=== PATIENT | female | born 1945 | race Caucasian/White ===

== ENCOUNTER → 2017-11-22 | Outpatient (CLI) | payer MEDICARE, BC ==
[~2017-11-22] MED LIST: ACIDOPHILLUS PO; ACIDOPHILUS1 EAC1 PO; ACYC400 PO; ASPI325 PO; ATOR10 PO; CHLO4 PO; CLON.5 PO; CRANBERRY PO; Cranberry500 M1 PO; DEXA4 PO; FURO40 PO; GABA100 PO; IBUP400 PO; IBUPROFEN200 MG PO; LETR2.5 PO; LORA10ER PO; MECL25 PO; Medi-Meclizine25 MG PO; Omeprazole20 M1 PO; PAMIDRONATE IV; POTA10T PO; POTCHL10ER PO; SUDAGEST PO; Sudogest60 MG PO; TRIHYD253A PO; TRIHYD5075 PO; VERA120 PO; VITAMIN D35000 UNIT PO; [UNRECOGNIZED DRUG - OTHER] PO
== END | disposition home or self-care (01) ==
LOC: LAB 14:00 → LAB SHORT 14:00
PROVIDERS: Family Medicine
DX: Z12.4 Encounter for screening for malignant neoplasm of cervix (principal)
CPT/HCPCS: G0145

== ENCOUNTER 2019-06-28 10:01 | Day surgery (SDC) | payer MEDICARE, BC ==
[~2019-06-28] VITALS: Ht 157.5 cm; Wt 63.0 kg
[~2019-06-28 10:01] MED LIST changes: +ALLERGY-TIME4 MG PO; -LORA10ER PO; +LORA1SY PO; +THERA1 EACH PO; +Voltaren100 GM TOP
--- NOTE | 2019-06-28 11:01 | NUR ---
06/28/19 1101 CYRUS CRANE History, Chart, Medications and Allergies reviewed before start of procedure.3-LEAD EKG REVIEWED WITH PHYSICIAN PRIOR TO START OF PROCEDURE.O2 VIA N/C INTACT THROUGHOUT SEDATION/PROCEDURE. See Anesthesia record.
== END 2019-06-28 11:46 | disposition home or self-care (01) ==
LOC: ORSCMMR 10:01 → ORD 11:30 → ORSCMMR 11:46
PROVIDERS: Internal Medicine Gastroenterology
PROC: 0DBK8ZX Excision of Ascending Colon, Via Natural or Artificial Opening Endoscopic, Diagnostic (ICD-10-PCS; principal; 2019-06-28 11:30)
PROC: 0DBM8ZX Excision of Descending Colon, Via Natural or Artificial Opening Endoscopic, Diagnostic (ICD-10-PCS; principal; 2019-06-28 11:30)
DX: Z12.11 Encounter for screening for malignant neoplasm of colon (principal); Z80.0 Family history of malignant neoplasm of digestive organs; Z86.010 Personal history of colon polyps; K63.5 Polyp of colon; D12.2 Benign neoplasm of ascending colon; I12.9 Hypertensive chronic kidney disease with stage 1 through stage 4 chronic kidney disease, or unspecified chronic kidney disease; N18.9 Chronic kidney disease, unspecified; Z87.891 Personal history of nicotine dependence; Z79.82 Long term (current) use of aspirin; Z79.899 Other long term (current) drug therapy
CPT/HCPCS: 88305; J2704; J7120

== ENCOUNTER 2019-08-26 09:31 | Inpatient (IN) | payer MEDICARE, BC ==
[~2019-08-26] VITALS: Ht 157.5 cm; Wt 62.8 kg
[~2019-08-26 09:31] MED LIST changes: -ALLERGY-TIME4 MG PO; -CLON.5 PO; -GABA100 PO; -LORA1SY PO; -VERA120 PO
[2019-08-26 10:54] LABS: BASOPHILS ABSOLUTE AUTO 0.03 K/mm3 (0.00-0.23); BASOPHILS PERCENT AUTO 0 % (0-2); EOSINOPHILS PERCENT AUTO 0 % (0-6); Hematocrit 37.4 % (33.0-51.0); Hemoglobin 11.4 g/dL (11.5-16.0); IMMATURE GRAN ABSOLUTE AUTO 0.07 K/mm3 (0.00-0.10); IMMATURE GRAN PERCENT AUTO 0 % (0-1); LYMPHOCYTES ABSOLUTE AUTO 0.63 K/mm3 (0.84-5.20); LYMPHOCYTES PERCENT AUTO 4 % (21-46); MONOCYTES ABSOLUTE AUTO 1.32 K/mm3 (0.16-1.47); MONOCYTES PERCENT AUTO 8 % (4-13); Mean Corpuscular HGB 28.4 pg (26.0-34.0); Mean Corpuscular HGB Conc 30.5 g/dL (31.5-36.5); Mean Corpuscular Volume 93 fL (80-100); Mean Platelet Volume 9.9 fL (9.1-12.4); NEUTROPHILS PERCENT AUTO 87 % (41-73); Platelet Count 274 K/mm3 (150-400); RDW Coefficient Variation 12.1 % (11.7-14.2); RDW Standard Deviation 42.1 fL (35.1-46.3); Red Blood Cell Count 4.02 M/mm3 (3.80-5.20); White Blood Cell Count 15.65 K/mm3 (4.00-11.30)
[2019-08-26 11:18] LABS: Alanine Aminotransfer (ALT/SGP 15 U/L (12-78); Albumin, Blood 3.1 g/dL (3.4-5.0); Albumin/Globulin Ratio 0.7 (0.8-1.8); Alk Phos 73 U/L (50-136); Anion Gap 8 mmol/L (6-16); Aspartate Aminotrans (AST/SGOT 7 U/L (12-37); Bilirubin, Total 0.6 mg/dL (0.1-1.0); Blood Urea Nitrogen 43 mg/dL (8-24); CO2, Blood 20 mmol/L (21-32); Calcium, Blood 8.9 mg/dL (8.5-10.1); Chloride, Blood 108 mmol/L (98-108); Creatinine, Blood 3.08 mg/dL (0.40-1.00); Globulin, Blood 4.6 g/dL (2.2-4.0); Glomerular Filtration Rate 16 (60-); Glucose, Blood 171 mg/dL (70-99); Potassium, Blood 4.2 mmol/L (3.5-5.5); Sodium, Blood 136 mmol/L (136-145); Total Protein, Blood 7.7 g/dL (6.4-8.2); Troponin I <0.015 ng/mL (0.000-0.040)
[2019-08-26 14:43] LABS: Source, Urine Clean Catch
[2019-08-26 14:51] LABS: Bilirubin, Urine Neg (Neg); Blood, Urine 4+ (Neg); Color, Urine Yellow (P-Yellow); Glucose Qualitative, Urine Neg (Neg); Ketones, Urine Neg (Neg); Leukocyte Esterase, Urine Neg (Neg); Nitrite, Urine Neg (Neg); Protein, Urine 2+ (Neg); Urobilinogen, Urine NORM (Normal)
[2019-08-26 14:58] LABS: Appearance, Urine Hazy (Clear)
[2019-08-26 15:08] LABS: Red Blood Cells, Urine 25-50 /hpf (0-2); White Blood Cells, Urine 0-2 /hpf (0-5)
[2019-08-26 15:09] LABS: Amorphous Light (0-Heavy); Bacteria Few /hpf; Squamous Epithelial Cells Few /hpf (Few)
[2019-08-26] MEDS ORDERED: GABA100 PO (16:00)
[2019-08-26] MEDS ORDERED: CLON.5 PO (16:01)
[2019-08-26] MEDS ORDERED: Sudogest30 MG PO (16:01)
[2019-08-26] MEDS ORDERED: VERAPAMIL ER120 M1 PO (16:02)
[2019-08-26] MEDS ORDERED: Loratadine10 MG PO (16:14)
[2019-08-26] MEDS ORDERED: ALLERGY-TIME4 MG PO (16:15)
--- NOTE | 2019-08-26 18:42 | NUR ---
PT ADMITTED THIS DHAVAL AT 1730. ADMIT DONE EXCEPT HISTORY. PT A/O PLEASANT COOP . PT AMBULATED TO BTHROOM SBA. DID WELL. TELE PLACED. S TACH AT 110. LIGHT CRACKLES LOW LEFT LUNGS. FISTULA MARIBEL. NO MURMER NOTED. ON R.A. BT X4 LAST BM YEST. VOIDS INDEPENDANT TO SBA IN ROOM/. BED IN LOW POSTION, CALL LITE IN REACH, CALLS APPROP
--- NOTE | 2019-08-27 02:11 | NUR ---
PATIENT VERY WORRIED ABOUT POSSIBILITY OF HAVING TO RETURN TO DIALYSIS. DISCUSSED DIETARY NEEDS AND LIFESTYLE CHANGES, AND PATIENT INDICATED THAT SHE HAS NEVER STOPPED ADHERING TO RENAL DIET, ETC. EVEN AFTER LAST DIALYSIS IN 2017. RIGHT ARM FISTULA WITH STRONG BRUIT AND THRILL. TOLERATED FLUID BOLUSES WITHOUT AND COMPLAINTS OR SOB.
[2019-08-27 05:26] LABS: BASOPHILS ABSOLUTE AUTO 0.03 K/mm3 (0.00-0.23); BASOPHILS PERCENT AUTO 0 % (0-2); EOSINOPHILS ABSOLUTE AUTO 0.02 K/mm3 (0.00-0.68); EOSINOPHILS PERCENT AUTO 0 % (0-6); Hematocrit 24.4 % (33.0-51.0); Hemoglobin 7.6 g/dL (11.5-16.0); IMMATURE GRAN ABSOLUTE AUTO 0.06 K/mm3 (0.00-0.10); IMMATURE GRAN PERCENT AUTO 0 % (0-1); LYMPHOCYTES ABSOLUTE AUTO 0.99 K/mm3 (0.84-5.20); LYMPHOCYTES PERCENT AUTO 7 % (21-46); MONOCYTES ABSOLUTE AUTO 1.38 K/mm3 (0.16-1.47); MONOCYTES PERCENT AUTO 10 % (4-13); Mean Corpuscular HGB Conc 31.1 g/dL (31.5-36.5); Mean Corpuscular Volume 93 fL (80-100); Mean Platelet Volume 10.6 fL (9.1-12.4); NEUTROPHILS ABSOLUTE AUTO 11.15 K/mm3 (1.96-9.15); NEUTROPHILS PERCENT AUTO 82 % (41-73); Platelet Count 240 K/mm3 (150-400); RDW Coefficient Variation 12.5 % (11.7-14.2); RDW Standard Deviation 42.2 fL (35.1-46.3); Red Blood Cell Count 2.62 M/mm3 (3.80-5.20); White Blood Cell Count 13.63 K/mm3 (4.00-11.30)
[2019-08-27 05:45] LABS: Albumin, Blood 2.4 g/dL (3.4-5.0); Anion Gap 10 mmol/L (6-16); Blood Urea Nitrogen 42 mg/dL (8-24); Bun/Creatinine Ratio 15.2 (12.0-20.0); CO2, Blood 17 mmol/L (21-32); Calcium, Blood 7.7 mg/dL (8.5-10.1); Chloride, Blood 113 mmol/L (98-108); Creatinine, Blood 2.76 mg/dL (0.40-1.00); Glomerular Filtration Rate 18 (60-); Glucose, Blood 111 mg/dL (70-99); Magnesium, Blood 2.1 mg/dL (1.6-2.4); Phosphorus, Blood 4.4 mg/dL (2.5-4.9); Potassium, Blood 4.3 mmol/L (3.5-5.5); Sodium, Blood 140 mmol/L (136-145)
[2019-08-27 10:28] LABS: Hematocrit 32.3 % (33.0-51.0); Hemoglobin 9.7 g/dL (11.5-16.0)
[2019-08-27 12:05] LABS: Antinuclear Antibody Screen Negative (Negative)
[2019-08-27 12:11] LABS: Adenovirus Not Detected (NOT DETECT); Bordetella pertussis Not Detected (NOT DETECT); Chlamydophila pneumoniae Not Detected (NOT DETECT); Coronavirus 229E Not Detected (NOT DETECT); Coronavirus HKU1 Not Detected (NOT DETECT); Coronavirus NL63 Not Detected (NOT DETECT); Coronavirus OC43 Not Detected (NOT DETECT); Human Metapneumovirus Not Detected (NOT DETECT); Human Rhinovirus/Enterovirus Not Detected (NOT DETECT); Influenza A Not Detected (NOT DETECT); Influenza A/2009-H1 Not Detected (NOT DETECT); Influenza A/H1 Not Detected (NOT DETECT); Influenza A/H3 Not Detected (NOT DETECT); Influenza B Not Detected (NOT DETECT); Mycoplasma pneumoniae Not Detected (NOT DETECT); Parainfluenza Virus 1 Not Detected (NOT DETECT); Parainfluenza Virus 2 Not Detected (NOT DETECT); Parainfluenza Virus 3 Not Detected (NOT DETECT); Parainfluenza Virus 4 Not Detected (NOT DETECT); Respiratory Syncytial Virus Not Detected (NOT DETECT)
--- NOTE | 2019-08-27 12:35 | NUR ---
Echocardiogram completed.
--- NOTE | 2019-08-27 16:04 | NUR ---
on 08/27/2019 patient gave this student nurse permission to give care on 08/28/2019
--- NOTE | 2019-08-27 16:33 | NUR ---
PATIENT GAVE STUDENT NURSE PERMISSION TO CARE FOR HER ON 08/28/2019.
--- NOTE | 2019-08-27 18:18 | NUR ---
SHIFT SUMMARY PT RESTING QUIETLY AT START OF SHIFT. UP TO CHAIR FOR BREAKFAST. IVF'S INFUSING PER EMAR AND THEN PT SL. UP INDEPENDENTLY TO BTHRM AND TO CHAIR. PT WITH R ARM FISTULA; OFF DIALYSIS [address] KWON IN TO SEE PT THIS AM. MEDICATIONS ADJUSTED AND LABS ORDERED. PT WITH POSSIBLE PERICARDITIS. PT UP TO SHOWER THIS AFTERNOON. IV TO LAC STARTED LEAKING WHEN ABX ADMIN. NEW IV PLACED BY CHRG RN. IV ABX INFUSING SLOWER D/T 22G AND FRAGILE VEINS. ALSO LIMITED VEIN ACCESS D/T R ARM FISTULA. PT IS A&O AND PLEASANT. DENIED FURTHER NEEDS. CALL LT IN REACH.
--- NOTE | 2019-08-28 05:09 | NUR ---
PIT HAND SUMMARY NO ACUTE CHANGES THIS SHIFT. PT AAOX4 AND INDEPENDENT IN ROOM. VERY PLEASANT. ON RA. DENIES SOB. LUNG SOUNDS A LITTLE COARSE BUT PT REPORTS FEELING IMPROVED. UNABLE TO PRODUCE SPUTUM SAMPLE TONIGHT. DENIES PAIN, SOB, N/V. VSS, WILL CONTINUE TO MONITOR.
[2019-08-28] MEDS ORDERED: ASPI325 PO (12:49)
[2019-08-28] MEDS ORDERED: HIGH POTENCY P1 EACH PO (12:50)
[2019-08-28] MEDS ORDERED: PANT20 PO (12:51)
[2019-08-28] MEDS ORDERED: LEVFLO500 PO (12:52)
--- NOTE | 2019-08-28 14:33 | NUR ---
PT DISCHARED PT VERBALIZED UNDERSTANDING OF THE DC INSTRUCTIONS, THE PTS PRESCRIPTIONS WERE FAXED TO [facility] REQUESTED, THE PT CALLED AND SET UP HER OWN FOLLOW UP APPOINTMENTS BEFORE BEING DC'D, THE PT APPEARED TO BE BREATHING EASILY ON RA AT THE TIME OF DC, THE PT WAS TRANSFERED VIA WHEELCHAIR ACCOMPANIED BY THE STUDENT NURSE
[2019-08-29 14:07] LABS: A/G RATIO 0.9 (0.7-1.7); ALBUMIN 2.5 g/dL (2.9-4.4); ALPHA-1-GLOBULIN 0.5 g/dL (0.0-0.4); BETA GLOBULIN 0.8 g/dL (0.7-1.3); GAMMA GLOBULIN 0.7 g/dL (0.4-1.8); IMMUNOFIXATION RESULT, SERUM Comment: (.); IMMUNOGLOBULIN A, QN, SERUM 205 mg/dL (64-422); IMMUNOGLOBULIN G, QN, SERUM 668 mg/dL (700-1600); IMMUNOGLOBULIN M, QN, SERUM 105 mg/dL (26-217); M-SPIKE Comment: g/dL (Not Observed); PROTEIN, TOTAL, SERUM 5.5 g/dL (6.0-8.5)
== END 2019-08-28 13:56 | disposition home or self-care (01) | DRG 871 ==
LOC: ER 09:31 → MEDS 17:14
PROVIDERS: Emergency Medicine; Family Medicine; Internal Medicine; ADMIT Internal Medicine
DX: A41.9 Sepsis, unspecified organism (principal); J18.9 Pneumonia, unspecified organism; N18.4 Chronic kidney disease, stage 4 (severe); C90.00 Multiple myeloma not having achieved remission; I31.3 Pericardial effusion (noninflammatory); I12.9 Hypertensive chronic kidney disease with stage 1 through stage 4 chronic kidney disease, or unspecified chronic kidney disease; E11.22 Type 2 diabetes mellitus with diabetic chronic kidney disease; E11.42 Type 2 diabetes mellitus with diabetic polyneuropathy; Z88.6 Allergy status to analgesic agent; Z88.5 Allergy status to narcotic agent; Z88.0 Allergy status to penicillin; Z85.3 Personal history of malignant neoplasm of breast; Z92.21 Personal history of antineoplastic chemotherapy; Z92.3 Personal history of irradiation
CPT/HCPCS: 0099U; 36415; 71046; 71250; 78582; 80053; 80069; 81001; 82784; 83605; 83735; 83880; 84165; 84484; 85014; 85018; 85025; 85379; 85651; 86038; 86140; 86334; 93005; 93010; 93306; 94640; 94760; 96361; 96365-59; 96368; 97110; 97116; 97161; 97165; 97535; 99285-25; A9540; A9558; C9113; J0456; J0696; J0881; J1644; J7030; J7050

== ENCOUNTER → 2020-09-30 | Outpatient (CLI) | payer MEDICARE, BC ==
[~2020-09-30] MED LIST changes: +ALLERGY-TIME4 MG PO; +CLON.5 PO; +GABA100 PO; +HIGH POTENCY P1 EACH PO; +LEVFLO500 PO; +Loratadine10 MG PO; +PANT20 PO; +Sudogest30 MG PO; +VERAPAMIL ER120 M1 PO
== END | disposition home or self-care (01) ==
LOC: LAB SHORT 15:41 → LAB 15:41
DX: R31.9 Hematuria, unspecified (principal)
CPT/HCPCS: 87086

== ENCOUNTER 2021-06-25 13:54 | Inpatient (IN) | payer MEDICARE, BC ==
[~2021-06-25] VITALS: Wt 68.0 kg
[2021-06-25] MEDS ORDERED: Hair, Skin & N1 EACH PO (16:31)
[2021-06-25] MEDS ORDERED: CALC.25 PO (16:31)
[2021-06-25] MEDS ORDERED: Vitamin D1000 UNI1 PO (16:31)
[2021-06-25] MEDS ORDERED: SODBIC650 PO (16:32)
[2021-06-25] MEDS ORDERED: NEBI5 PO (16:32)
[2021-06-25 16:36] LABS: Hematocrit 31.8 % (33.0-51.0); Hemoglobin 10.2 g/dL (11.5-16.0); Mean Corpuscular HGB Conc 32.1 g/dL (31.5-36.5); Mean Corpuscular Volume 90 fL (80-100); Mean Platelet Volume 9.3 fL (9.1-12.4); Platelet Count 180 K/mm3 (150-400); RDW Coefficient Variation 12.3 % (11.7-14.2); RDW Standard Deviation 40.3 fL (35.1-46.3); Red Blood Cell Count 3.52 M/mm3 (3.80-5.20); White Blood Cell Count 4.56 K/mm3 (4.00-11.30)
[2021-06-25 16:59] LABS: Calcium, Blood 9.4 mg/dL (8.5-10.1); Creatinine, Blood 2.88 mg/dL (0.40-1.00); Potassium, Blood 4.4 mmol/L (3.5-5.5)
[2021-06-25 17:36] LABS: Influenza A, PCR NEGATIVE (NEGATIVE); Influenza B, PCR NEGATIVE (NEGATIVE); Resp Syncytial Virus, PCR NEGATIVE (NEGATIVE); SARS-Cov-2 (COVID-19) PCR, MMC NEGATIVE (NEGATIVE)
--- NOTE | 2021-06-25 19:22 | NUR ---
SHIFT SUMMARY PT WAS A DIRECT ADMIT TODAY. SHE IS AWAITING SURGERY TOMORROW. VSS BUT BP SOMEWHAT ELEVATED. PRN HOSPITALIS CONSULT ORDERED. PT IS A 1 ASSIST TO THE BATHROOM WITH A GAIT BELT. WILL MONITOR UNTIL REPORT TO DESTINEE RN.
--- NOTE | 2021-06-26 06:22 | NUR ---
Alert and oriented x's 4.Slept well through night. Complained of mild discomfort to left arm, received tylenol 1000mg, effective relief. Sling remains in place to left arm, denies numbness and tingling, able to move fingers. safety maintained, call shanks in reach.
--- NOTE | 2021-06-26 12:14 | NUR ---
TO DAY SURGERY VIA CART. PATIENT HAS RING IN PLACE TO LEFT RING FINGER. DAY SURGERY RN PAULINA WHEATLEY AWARE OF PATIENTS RING. VOICEMAIL LEFT WITH APTIENTS NIECE KHOI AT PATIEN REQUEST TO LET HER KNOW THAT HER AUNT WAS GOING TO SURGERY
--- NOTE | 2021-06-26 13:05 | NUR ---
PATEINT INTO DAY SURGERY FROM 219. History, Chart, Medications and Allergies reviewed before start of procedure.Patient confirms NPO status and agrees with scheduled surgery.PATEINT PAINFUL TO L BROKEN HUMERUS. ADAMANTLY REFUSES CHL DINH. DIALYSIS FISULA TO RFA. RIGHT ROOT PIV PATENT. BP TAKEN ON LEFT LEG. PAS NOT PLACED BUT SENT BACK OR.
--- NOTE | 2021-06-26 17:15 | NUR ---
TO PACU. DROWSY BUT AWAKES WITH VERBAL STIMULATION. LUNGS CTA, FISTULA NOTED TO RIGHT ARM, STRONG BRUIT. IV TO RIGHT LEG, DRESSING CLEAR. AQUACEL DRESSING TO LEFT SHOULDER, CDI. SLING IN PLACE. VSS, DENIES PAIN.
[2021-06-26] MEDS ORDERED: ACET500 PO (17:16)
[2021-06-26] MEDS ORDERED: ROXICODONE5 MG PO (17:17)
--- NOTE | 2021-06-26 17:35 | NUR ---
1730 returned to room from pacu, opens eyes briefly when spoke to then returns to sleep. aquacell dressing dry and intact to left shoulder. sling in place to left arm. pt wiggles bilat fingers, pulses intact to bilat wrists. capillary refill to hands less than 3 seconds. pt denies pain
--- NOTE | 2021-06-27 05:53 | NUR ---
SHIFT SUMMARY PATIENT RESTED COMFORTABLY IN BED. VOIDING WITHOUT ISSUE. NEW IV PLACED IN LEFT ARM AND INFUSING. PAIN 0/10 DT BLOCK IN SURGERY. LUE NUMB AND UNABLE TO OVERCOME GRAVITY. LUE AQUACEL C/D/I AND IN SLING
--- NOTE | 2021-06-27 16:04 | NUR ---
SHIFT SUMMARY; ASSUMED CARE AT 0700, A/A/OX4. LEFT ARM SLING INPLACE. AQUACEL TO [facility] SITE C/D/I. REPORTS NAUSEA. TELEPHONE ORDER FROM DR. ORTIZ FOR ZOFRAN 4MG ODT. EVALUATED FOR DISCHARGE BY DR. ORTIZ. AMBULATES IN ROOM WITH ASSISTANCE. DC'D HOME WITH VERBAL AND WRITTEN INSTRUCTIONS AND AQUACEL DRESSING TO CHANGE IN 7 DAYS.
--- NOTE | 2021-06-30 13:55 | NUR ---
06/30/21 1355 Violet Aguilar VERIFICATIONS: EDIT CHART.
== END 2021-06-27 15:43 | disposition home or self-care (01) | DRG 493 ==
LOC: SURS 13:54
PROVIDERS: ADMIT Orthopaedic Surgery
PROC: 0PS Upper Bones, Reposition (ICD-10-PCS; principal; 2021-06-26 12:30)
DX: M84.522A Pathological fracture in neoplastic disease, left humerus, initial encounter for fracture (principal); C90.00 Multiple myeloma not having achieved remission; J45.909 Unspecified asthma, uncomplicated; E78.5 Hyperlipidemia, unspecified; I12.9 Hypertensive chronic kidney disease with stage 1 through stage 4 chronic kidney disease, or unspecified chronic kidney disease; N18.9 Chronic kidney disease, unspecified; Z85.3 Personal history of malignant neoplasm of breast; Z87.442 Personal history of urinary calculi; Z98.890 Other specified postprocedural states; Z79.899 Other long term (current) drug therapy; Z88.5 Allergy status to narcotic agent; Z88.0 Allergy status to penicillin; Z88.8 Allergy status to other drugs, medicaments and biological substances; Z20.822 Contact with and (suspected) exposure to COVID-19
CPT/HCPCS: 0241U; 36415; 80048; 85027; 86850; 86900; 86901; A9270; J0690; J1100; J2250; J2370; J2405; J2704; J3010; J7030; J7120

== ENCOUNTER → 2021-09-20 | Outpatient (CLI) | payer MEDICARE, BC ==
[~2021-09-20] MED LIST changes: +ACET500 PO; +CALC.25 PO; +Hair, Skin & N1 EACH PO; +NEBI5 PO; +ROXICODONE5 MG PO; +SODBIC650 PO; +Vitamin D1000 UNI1 PO
== END | disposition home or self-care (01) ==
LOC: LAB 16:49 → LAB SHORT 16:49
DX: N39.0 Urinary tract infection, site not specified (principal)
CPT/HCPCS: 87077; 87086; 87186

== ENCOUNTER 2021-10-12 09:09 | Day surgery (SDC) | payer MEDICARE, BC ==
[2021-10-12 10:00] LABS: BASOPHILS ABSOLUTE AUTO 0.01 K/mm3 (0.00-0.23); BASOPHILS PERCENT AUTO 0 % (0-2); EOSINOPHILS ABSOLUTE AUTO 0.22 K/mm3 (0.00-0.68); EOSINOPHILS PERCENT AUTO 4 % (0-6); Hematocrit 23.9 % (33.0-51.0); IMMATURE GRAN ABSOLUTE AUTO 0.03 K/mm3 (0.00-0.10); IMMATURE GRAN PERCENT AUTO 1 % (0-1); LYMPHOCYTES ABSOLUTE AUTO 0.44 K/mm3 (0.84-5.20); LYMPHOCYTES PERCENT AUTO 8 % (21-46); MONOCYTES ABSOLUTE AUTO 0.67 K/mm3 (0.16-1.47); MONOCYTES PERCENT AUTO 12 % (4-13); Mean Corpuscular HGB Conc 29.3 g/dL (31.5-36.5); Mean Corpuscular Volume 109 fL (80-100); Mean Platelet Volume 11.6 fL (9.1-12.4); NEUTROPHILS ABSOLUTE AUTO 4.13 K/mm3 (1.96-9.15); NEUTROPHILS PERCENT AUTO 75 % (41-73); Platelet Count 140 K/mm3 (150-400); RDW Coefficient Variation 15.4 % (11.7-14.2); RDW Standard Deviation 57.9 fL (35.1-46.3); Red Blood Cell Count 2.19 M/mm3 (3.80-5.20)
[2021-10-12 10:10] LABS: Albumin, Blood 3.3 g/dL (3.4-5.0); Albumin/Globulin Ratio 1.3 (0.8-1.8); Bilirubin, Total 0.8 mg/dL (0.1-1.0); Bun/Creatinine Ratio 15.8 (12.0-20.0); Creatinine, Blood 4.87 mg/dL (0.40-1.00); Globulin, Blood 2.6 g/dL (2.2-4.0); Potassium, Blood 4.8 mmol/L (3.5-5.5); Total Protein, Blood 5.9 g/dL (6.4-8.2)
== END 2021-10-12 16:47 | disposition home or self-care (01) ==
LOC: ATC 09:09 → LAB SHORT 09:09 → ATC 16:47 → EDSTATUS 07-27 17:20 → LAB SO 07-27 17:20
PROVIDERS: Internal Medicine Hematology & Oncology
DX: C90.00 Multiple myeloma not having achieved remission (principal); I10 Essential (primary) hypertension; E78.5 Hyperlipidemia, unspecified
CPT/HCPCS: 36415; 80053; 85025; 86850; 86900; 86901; 86920; J7050; P9016

== ENCOUNTER 2021-10-14 11:34 | Inpatient (IN) | payer MEDICARE, BC ==
[~2021-10-14] VITALS: Ht 157.5 cm; Wt 68.4 kg
[~2021-10-14 11:34] MED LIST changes: -ALLERGY-TIME4 MG PO
[2021-10-14 12:23] LABS: BASOPHILS PERCENT AUTO 0 % (0-2); EOSINOPHILS ABSOLUTE AUTO 0.07 K/mm3 (0.00-0.68); EOSINOPHILS PERCENT AUTO 1 % (0-6); Hematocrit 27.6 % (33.0-51.0); Hemoglobin 8.1 g/dL (11.5-16.0); IMMATURE GRAN ABSOLUTE AUTO 0.02 K/mm3 (0.00-0.10); IMMATURE GRAN PERCENT AUTO 0 % (0-1); LYMPHOCYTES ABSOLUTE AUTO 0.61 K/mm3 (0.84-5.20); LYMPHOCYTES PERCENT AUTO 11 % (21-46); MONOCYTES ABSOLUTE AUTO 1.03 K/mm3 (0.16-1.47); MONOCYTES PERCENT AUTO 19 % (4-13); Mean Corpuscular HGB 31.8 pg (26.0-34.0); Mean Corpuscular HGB Conc 29.3 g/dL (31.5-36.5); Mean Corpuscular Volume 108 fL (80-100); Mean Platelet Volume 11.1 fL (9.1-12.4); NEUTROPHILS ABSOLUTE AUTO 3.75 K/mm3 (1.96-9.15); NEUTROPHILS PERCENT AUTO 68 % (41-73); NRBC ABSOLUTE 0.03 K/mm3 (0.00-0.02); NRBC Auto 0.5 /100 WBC (0.0-0.2); Platelet Count 71 K/mm3 (150-400); RDW Coefficient Variation 19.1 % (11.7-14.2); RDW Standard Deviation 77.5 fL (35.1-46.3); Red Blood Cell Count 2.55 M/mm3 (3.80-5.20); White Blood Cell Count 5.48 K/mm3 (4.00-11.30)
[2021-10-14 12:48] LABS: Albumin/Globulin Ratio 1.1 (0.8-1.8); Bilirubin, Total 0.5 mg/dL (0.1-1.0); Bun/Creatinine Ratio 15.6 (12.0-20.0); Calcium, Blood 7.9 mg/dL (8.5-10.1); Creatinine, Blood 5.56 mg/dL (0.40-1.00); Globulin, Blood 2.8 g/dL (2.2-4.0); Potassium, Blood 4.9 mmol/L (3.5-5.5); Total Protein, Blood 5.8 g/dL (6.4-8.2)
--- NOTE | 2021-10-14 18:37 | NUR ---
PT ADMITTED TO ROOM 302 AT 1755- ORIENTED TO ROOM SET UP AND SAFETY. FINANCE LEAD CAME TO ROOM TO PERFORM RENAL U.S. AWAITING TELE.
[2021-10-14] MEDS ORDERED: ACYC400 PO (20:28)
--- NOTE | 2021-10-15 04:25 | NUR ---
SHIFT SUMMARY: PT IS A/OX4. SHE IS A SBA TO THE BR. TELE: SR/69 W/ OCCASSIONAL PVCs PER COMPTOMETER OPERATOR. THE PT IS CURRENTLY GETTING CHEMO ON MONDAYS. SHE DOES HAVE AN A/V FISTULA IN HER RT ARM. A 24-HOUR URINE WAS INITIATED AT 2100. SHE DOES HAVE 2+ PITTING EDEMA TO BLE.
[2021-10-15 04:56] LABS: Albumin, Blood 2.8 g/dL (3.4-5.0); Albumin/Globulin Ratio 1.3 (0.8-1.8); Bilirubin, Total 0.5 mg/dL (0.1-1.0); Bun/Creatinine Ratio 15.6 (12.0-20.0); Calcium, Blood 7.7 mg/dL (8.5-10.1); Creatinine, Blood 5.4 mg/dL (0.40-1.00); Globulin, Blood 2.2 g/dL (2.2-4.0); Magnesium, Blood 2.2 mg/dL (1.6-2.4); Phosphorus, Blood 6.2 mg/dL (2.5-4.9); Potassium, Blood 4.7 mmol/L (3.5-5.5)
[2021-10-15 05:19] LABS: BASOPHILS PERCENT AUTO 0 % (0-2); EOSINOPHILS ABSOLUTE AUTO 0.07 K/mm3 (0.00-0.68); EOSINOPHILS PERCENT AUTO 2 % (0-6); Hematocrit 24.9 % (33.0-51.0); Hemoglobin 7.7 g/dL (11.5-16.0); IMMATURE GRAN ABSOLUTE AUTO 0.02 K/mm3 (0.00-0.10); IMMATURE GRAN PERCENT AUTO 1 % (0-1); LYMPHOCYTES ABSOLUTE AUTO 0.56 K/mm3 (0.84-5.20); LYMPHOCYTES PERCENT AUTO 20 % (21-46); MONOCYTES ABSOLUTE AUTO 0.76 K/mm3 (0.16-1.47); MONOCYTES PERCENT AUTO 27 % (4-13); Mean Corpuscular HGB 31.6 pg (26.0-34.0); Mean Corpuscular HGB Conc 30.9 g/dL (31.5-36.5); Mean Platelet Volume 11.7 fL (9.1-12.4); NEUTROPHILS ABSOLUTE AUTO 1.45 K/mm3 (1.96-9.15); NEUTROPHILS PERCENT AUTO 51 % (41-73); NRBC ABSOLUTE 0.02 K/mm3 (0.00-0.02); NRBC Auto 0.7 /100 WBC (0.0-0.2); Platelet Count 60 K/mm3 (150-400); RDW Coefficient Variation 18.6 % (11.7-14.2); RDW Standard Deviation 69.5 fL (35.1-46.3); Red Blood Cell Count 2.44 M/mm3 (3.80-5.20); White Blood Cell Count 2.86 K/mm3 (4.00-11.30)
[2021-10-15 05:25] LABS: Mean Corpuscular Volume 102 fL (80-100)
--- NOTE | 2021-10-15 08:00 | NUR ---
pt laying in bed watching tv, a/ox3, a bit forgetful at times, lungs are clear dim in bases, resp even and unlabored, on r/a, no cough noted, hrr, tele in place running sr with occ pvc's 1+ edema noted to right le, 2+ noted to left, ppp+2, cap refill <3sec, vs stable, afebrile, iv site to rfa is clear and patent, infusing bicarb as ordered, btx4, abd flat soft nontender, voids via br, skin c/w/d, maew, satya, call light in reach.
--- NOTE | 2021-10-15 18:14 | NUR ---
Pt has been up to the bathroom a number of times, needs assist to stand from sitting position otherwise gait is steady. no acute changes this shift. call light in reach.
[2021-10-16 05:10] LABS: Hematocrit 24.6 % (33.0-51.0); Hemoglobin 7.8 g/dL (11.5-16.0)
[2021-10-16 05:32] LABS: Albumin, Blood 2.9 g/dL (3.4-5.0); Anion Gap 11 mmol/L (6-16); Blood Urea Nitrogen 83 mg/dL (8-24); Bun/Creatinine Ratio 15.2 (12.0-20.0); CO2, Blood 23 mmol/L (21-32); Calcium, Blood 8.3 mg/dL (8.5-10.1); Chloride, Blood 112 mmol/L (98-108); Creatinine, Blood 5.46 mg/dL (0.40-1.00); Glomerular Filtration Rate 8 (60-); Glucose, Blood 108 mg/dL (70-99); Magnesium, Blood 2.3 mg/dL (1.6-2.4); Phosphorus, Blood 4.8 mg/dL (2.5-4.9); Potassium, Blood 3.9 mmol/L (3.5-5.5); Sodium, Blood 146 mmol/L (136-145)
--- NOTE | 2021-10-16 05:53 | NUR ---
PT IS A/OX4. TELE: SR/70. RA. PT IS A SBA W/ CANE TO BR. SHE IS CURRENTLY GETTING CHEMO ON MONDAYS. HER BLE EDEMA SEEMS TO BE IMPROVING. THE PT HAS BEEN COOPERATIVE W/ ALL CARE. PT USES CALL LIGHT WHEN ASSISTANCE IS NEEDED TO BR. 24-HOUR URINE IS DUE TO BE FINISHED AT 1530.
[2021-10-16 16:30] LABS: Source, Urine Clean Catch
[2021-10-16 16:54] LABS: Appearance, Urine Clear (Clear); Bilirubin, Urine Neg (Neg); Blood, Urine 3+ (Neg); Color, Urine Yellow (P-Yellow); Glucose Qualitative, Urine Neg (Neg); Ketones, Urine Neg (Neg); Leukocyte Esterase, Urine Neg (Neg); Nitrite, Urine Neg (Neg); Protein, Urine 2+ (Neg); Urobilinogen, Urine NORM (Normal)
[2021-10-16 16:58] LABS: Protein, Urine Quantitative 36.4 mg/dL (0.0-11.9)
[2021-10-16 17:10] LABS: Bacteria Few /hpf; Squamous Epithelial Cells Rare /hpf (Few); White Blood Cells, Urine 0-2 /hpf (0-5)
--- NOTE | 2021-10-16 18:37 | NUR ---
END OF SHIFT SUMMARY: PT RESTING COMFORTABLY ALL DAY, IV FLUIDS INFUSING. PT AMBULATED TO BR WITH STAFF SBA. 24/HR URINE COLLECTED TODAY, SENT URINE TO LAB AT 1530. VITALS STABLE.
--- NOTE | 2021-10-17 05:55 | NUR ---
SHIFT SUMMARY: PT IS A/OX4. RA TELE: SR/77 W/ OCCASSIONAL PVCs. SBA TO BR W/ CANE. 24 HOUR URINE WAS COLLECTED 10/16 @ 1530. BLE +1 EDEMA. NO ACUTE CHANGES THIS NOC SHIFT. CALL LIGHT IS WITHIN REACH.
[2021-10-17 06:02] LABS: Hematocrit 26.5 % (33.0-51.0); Hemoglobin 8.2 g/dL (11.5-16.0)
[2021-10-17 06:13] LABS: Magnesium, Blood 1.9 mg/dL (1.6-2.4)
[2021-10-17 06:15] LABS: Anion Gap 7 mmol/L (6-16); Blood Urea Nitrogen 75 mg/dL (8-24); Bun/Creatinine Ratio 14.5 (12.0-20.0); CO2, Blood 22 mmol/L (21-32); Calcium, Blood 7.9 mg/dL (8.5-10.1); Chloride, Blood 114 mmol/L (98-108); Creatinine, Blood 5.17 mg/dL (0.40-1.00); Glomerular Filtration Rate 8 (60-); Glucose, Blood 114 mg/dL (70-99); Phosphorus, Blood 4.1 mg/dL (2.5-4.9); Potassium, Blood 4.1 mmol/L (3.5-5.5); Sodium, Blood 143 mmol/L (136-145)
--- NOTE | 2021-10-17 18:06 | NUR ---
END OF SHIFT SUMMARY: NO CHANGES TO PATIENT STATUS THIS SHIFT. H/H STABLE, CONTINUING TO IMPROVE, HGB 8.2 & HCT 26.5. PT AMBULATING WELL, STEADY GAIT. D5W/NS INFUSING AT 50ML/HR. RIGHT AV FISTULA WNL. NO EDEMA/SWELLING IN LEGS. PT DENIES PAIN, RESTING COMFORTABLY IN BED. VSS.
--- NOTE | 2021-10-18 03:48 | NUR ---
SHIFT SUMMARY NO ACUTE CHANGES TO PT CONDITION. PT IS PLEASANT AND COOPERATIVE WITH CARE. PT WOULD LIKE FLUIDS TO BE DISCONTINUED. PT UP TO RESTROOM WITH HER CANE AND ONE PERSON ASSIST TO HELP WITH HER IV POLE. CALL LIGHT IS WITHIN HER REACH. WILL CONTINUE TO MONITOR.
[2021-10-18 05:28] LABS: Hematocrit 25.6 % (33.0-51.0); Hemoglobin 7.6 g/dL (11.5-16.0)
[2021-10-18 06:04] LABS: Albumin, Blood 2.8 g/dL (3.4-5.0); Anion Gap 7 mmol/L (6-16); Blood Urea Nitrogen 67 mg/dL (8-24); Bun/Creatinine Ratio 14.5 (12.0-20.0); CO2, Blood 22 mmol/L (21-32); Calcium, Blood 8.4 mg/dL (8.5-10.1); Chloride, Blood 117 mmol/L (98-108); Creatinine, Blood 4.62 mg/dL (0.40-1.00); Glomerular Filtration Rate 9 (60-); Glucose, Blood 113 mg/dL (70-99); Magnesium, Blood 2.1 mg/dL (1.6-2.4); Phosphorus, Blood 4.4 mg/dL (2.5-4.9); Sodium, Blood 146 mmol/L (136-145)
--- NOTE | 2021-10-18 15:15 | NUR ---
SHIFT SUMMARY: PT A/O X 4 STANDBY ASSIST IN ROOM. PT GIVEN BUMEX THIS AM AND TOLERATED WELL WITH REPORTS SHE DID NOT HAVE ANY DIZZINESS POST TAKING. PT AMBULATES TO BATHROOM WITH CANE WITH STANDBY ASSIST, STEADY ON FEET. PT VERY PLEASANT AND COOPERATIVE WITH CARE. NO ACUTE CHANGES T/OUT SHIFT. HANDOFF REPORT GIVEN TO JACKSON LOPEZ.
--- NOTE | 2021-10-18 17:29 | NUR ---
ASSUMED CARE OF PATIENT AT 1515 THIS SHIFT. THE PATIENT IS CURRENTLY RESTING. COREG GIVEN TO PATIENT. NO ACUTE CHANGES. THIS NURSE WILL CONTINUE TO CARE FOR THE PATIENT UNTIL SHIFT REPORT IS GIVEN TO ONCOMING NURSE.
--- NOTE | 2021-10-19 04:58 | NUR ---
SHIFT SUMMARY: PT IS A/OX4. RA. TELE: SR/81. PT HAS BEEN INDEPENDENT TO BR W/ A CANE. SHE WILL USE HER CALL LIGHT FOR ALL OTHER NEEDS. SHE HAS BLE NON-PITTING EDEMA. NO ACUTE CHANGES TO REPORT; PT IS A PROBABLE DC TODAY. WE'LL CONTINUE TO MONITOR THE REST OF THE SHIFT.
[2021-10-19 05:16] LABS: Hematocrit 26.5 % (33.0-51.0); Hemoglobin 8.1 g/dL (11.5-16.0)
[2021-10-19 05:43] LABS: Albumin, Blood 3.1 g/dL (3.4-5.0); Anion Gap 8 mmol/L (6-16); Blood Urea Nitrogen 65 mg/dL (8-24); Bun/Creatinine Ratio 14.2 (12.0-20.0); CO2, Blood 25 mmol/L (21-32); Calcium, Blood 9.1 mg/dL (8.5-10.1); Chloride, Blood 115 mmol/L (98-108); Creatinine, Blood 4.59 mg/dL (0.40-1.00); Glomerular Filtration Rate 9 (60-); Glucose, Blood 117 mg/dL (70-99); Magnesium, Blood 2.1 mg/dL (1.6-2.4); Phosphorus, Blood 4.8 mg/dL (2.5-4.9); Potassium, Blood 4.1 mmol/L (3.5-5.5); Sodium, Blood 148 mmol/L (136-145)
[2021-10-19 08:10] LABS: ANTIGLOMERULAR BM AB 3 units (0-20)
[2021-10-19 14:08] LABS: ANA DIRECT Negative (Negative); ANTIMYELOPEROXIDASE (MPO) ABS <9.0 U/mL (0.0-9.0); ANTIPROTEINASE 3 (PR-3) ABS <3.5 U/mL (0.0-3.5); ATYPICAL PANCA <1:20 titer (Neg:<1:20); CYTOPLASMIC (C-ANCA) <1:20 titer (Neg:<1:20); PERINUCLEAR (P-ANCA) <1:20 titer (Neg:<1:20)
--- NOTE | 2021-10-19 18:30 | NUR ---
SHIFT SUMMARY: PT A/O X 4 IND IN ROOM AT THIS TIME. SHE IS STEADY ON FEET AT THIS TIME. PLEASANT AND COOPERATIVE. PT HAS BEEN REFUSING HEPARIN SQ DAILY REORTING SHE GETS UP ALL THE TIME AND DOES NOT FEEL SHE NEEDS ANTICOAGULANT. PT HAS HAD NO SIGNS OF DVT AT THIS TIME. PT BECAME TEARFUL T/OUT THE DAY AFTER DISCUSSING POSSIBLE NEED TO WAIT FOR DIALYSIS CHAIR. OFFERED EMPATHETIC LISTENING AND OFFERED SLIP COVER SEWER OR CAR LOT ATTENDANT WHICH SHE DECLINED. SHE REPORTED SHE HAD A NEICE SHE COULD TALK TO BUT DID NOT WANT TO CALL HER AT THIS TIME. PT REPORTED STUFFY NOSE FROM AIR CONDITIONING AND SALINE NASAL SPRAY ORDERED PER VO FROM DR. HOOVER REQUESTED. NO OTHER ACUTE CONCERNS OR CHANGES T/OUT THE DAY.
--- NOTE | 2021-10-20 05:00 | NUR ---
SHIFT SUMMARY AOX4. VSS. TELE NSR c PAC, PVC & HR 92. REPORTS 5/10 NEUROPATHY PAIN & MUSCLE SPASMS IN R FOOT, MEDICATED 1X c TYLENOL- PT ABLE TO REST COMFORTABLY & STATED PAIN RELIEF. +2 EDEMA TO LLE, TRACE EDEMA RLE. DENIES N/V OR DYSPNEA. IND TO RESTROOM c CANE. PT REPORTS SHE'S HOPING TO DC HOME TODAY, AWAITING DIALYSIS CHAIR PER REPORT. CALL LIGHT IN REACH, WCTM.
[2021-10-20 05:22] LABS: Hematocrit 27.1 % (33.0-51.0); Hemoglobin 8.2 g/dL (11.5-16.0)
[2021-10-20 06:04] LABS: Albumin, Blood 3.2 g/dL (3.4-5.0); Anion Gap 9 mmol/L (6-16); Blood Urea Nitrogen 68 mg/dL (8-24); Bun/Creatinine Ratio 15.2 (12.0-20.0); CO2, Blood 25 mmol/L (21-32); Calcium, Blood 9.4 mg/dL (8.5-10.1); Chloride, Blood 113 mmol/L (98-108); Creatinine, Blood 4.48 mg/dL (0.40-1.00); Glomerular Filtration Rate 10 (60-); Glucose, Blood 115 mg/dL (70-99); Magnesium, Blood 2.2 mg/dL (1.6-2.4); Phosphorus, Blood 5.1 mg/dL (2.5-4.9); Potassium, Blood 4.1 mmol/L (3.5-5.5); Sodium, Blood 147 mmol/L (136-145)
[2021-10-20] MEDS ORDERED: BUME2 PO (09:53)
--- NOTE | 2021-10-20 11:37 | NUR ---
DISCHARGE SUMMARY PT A/O X4; PLEASANT AND COOPERATIVE WITH CARE. PT REPORTS FEELING MUCH BETTER AND VITAL SIGNS ARE STABLE. PT TO FOLLOW UP WITH DR. V[facility]. NO NEED FOR DIALYSIS AT THE MOMENT. EDUCATED PT ON DC INSTRUCTIONS AND SHE EXHIBITED UNDERSTANDING. DC'D HOME WITH .
[2021-10-20 15:10] LABS: A/G RATIO 1.9 (0.7-1.7); ALBUMIN 3.1 g/dL (2.9-4.4); ALPHA-1-GLOBULIN 0.2 g/dL (0.0-0.4); ALPHA-2-GLOBULIN 0.5 g/dL (0.4-1.0); BETA GLOBULIN 0.7 g/dL (0.7-1.3); GAMMA GLOBULIN 0.3 g/dL (0.4-1.8); GLOBULIN, TOTAL 1.7 g/dL (2.2-3.9); IMMUNOGLOBULIN A, QN, SERUM 10 mg/dL (64-422); IMMUNOGLOBULIN G, QN, SERUM 302 mg/dL (586-1602); IMMUNOGLOBULIN M, QN, SERUM 7 mg/dL (26-217); M-SPIKE 0.1 g/dL (Not Observed); PROTEIN, TOTAL, SERUM 4.8 g/dL (6.0-8.5)
[2021-10-22 13:10] LABS: M-SPIKE, % Not Observed % (Not Observed); PROTEIN,TOTAL,URINE 25.2 mg/dL (Not Estab.)
== END 2021-10-20 11:22 | disposition home or self-care (01) | DRG 683 ==
LOC: ER 11:34 → MEDS 16:08
PROVIDERS: Internal Medicine Nephrology; Student in an Organized Health Care Education/Training Program; ADMIT Internal Medicine
DX: N17.0 Acute kidney failure with tubular necrosis (principal); I12.0 Hypertensive chronic kidney disease with stage 5 chronic kidney disease or end stage renal disease; C90.00 Multiple myeloma not having achieved remission; E87.2 Acidosis; E87.0 Hyperosmolality and hypernatremia; N18.5 Chronic kidney disease, stage 5; D63.1 Anemia in chronic kidney disease; D63.0 Anemia in neoplastic disease; E78.5 Hyperlipidemia, unspecified; Z85.3 Personal history of malignant neoplasm of breast; Z79.899 Other long term (current) drug therapy; Z88.5 Allergy status to narcotic agent; Z88.0 Allergy status to penicillin; Z88.6 Allergy status to analgesic agent; Z98.890 Other specified postprocedural states; F63.1 Pyromania; Z92.3 Personal history of irradiation; D69.6 Thrombocytopenia, unspecified; D47.2 Monoclonal gammopathy; E87.70 Fluid overload, unspecified; Z88.8 Allergy status to other drugs, medicaments and biological substances; N25.81 Secondary hyperparathyroidism of renal origin
CPT/HCPCS: 36415; 36430; 76770; 80053; 80069; 81001; 81050; 82784; 83516; 83520; 83521; 83735; 84100; 84155; 84156; 84165; 84166; 85014; 85018; 85025; 86037; 86038; 86334; 86335; 86850; 86900; 86901; 86920; 87086; 99284; A9270; J0881; J1644; J7030; J7042; J7050; J7070; P9016

== ENCOUNTER 2021-10-29 13:58 | Observation (INO) | payer MEDICARE, BC ==
[~2021-10-29] VITALS: Ht 157.5 cm; Wt 64.4 kg
[~2021-10-29 13:58] MED LIST changes: +BUME2 PO
[2021-10-29 15:26] LABS: Albumin, Blood 3.4 g/dL (3.4-5.0); Albumin/Globulin Ratio 1.2 (0.8-1.8); Bilirubin, Total 0.9 mg/dL (0.1-1.0); Bun/Creatinine Ratio 13.3 (12.0-20.0); Calcium, Blood 8.5 mg/dL (8.5-10.1); Creatinine, Blood 5.78 mg/dL (0.40-1.00); Globulin, Blood 2.9 g/dL (2.2-4.0); Potassium, Blood 4.1 mmol/L (3.5-5.5); Total Protein, Blood 6.3 g/dL (6.4-8.2)
[2021-10-29 15:43] LABS: BASOPHILS ABSOLUTE AUTO 0.01 K/mm3 (0.00-0.23); BASOPHILS PERCENT AUTO 0 % (0-2); EOSINOPHILS ABSOLUTE AUTO 0.32 K/mm3 (0.00-0.68); EOSINOPHILS PERCENT AUTO 6 % (0-6); Hematocrit 30.2 % (33.0-51.0); Hemoglobin 9.2 g/dL (11.5-16.0); IMMATURE GRAN ABSOLUTE AUTO 0.04 K/mm3 (0.00-0.10); IMMATURE GRAN PERCENT AUTO 1 % (0-1); LYMPHOCYTES ABSOLUTE AUTO 0.45 K/mm3 (0.84-5.20); LYMPHOCYTES PERCENT AUTO 8 % (21-46); MONOCYTES ABSOLUTE AUTO 0.61 K/mm3 (0.16-1.47); MONOCYTES PERCENT AUTO 11 % (4-13); Mean Corpuscular HGB 31.4 pg (26.0-34.0); Mean Corpuscular HGB Conc 30.5 g/dL (31.5-36.5); Mean Corpuscular Volume 103 fL (80-100); Mean Platelet Volume 12.1 fL (9.1-12.4); NEUTROPHILS ABSOLUTE AUTO 4.38 K/mm3 (1.96-9.15); NEUTROPHILS PERCENT AUTO 75 % (41-73); NRBC ABSOLUTE 0.13 K/mm3 (0.00-0.02); NRBC Auto 2.2 /100 WBC (0.0-0.2); RDW Coefficient Variation 16.7 % (11.7-14.2); RDW Standard Deviation 62.8 fL (35.1-46.3); Red Blood Cell Count 2.93 M/mm3 (3.80-5.20); White Blood Cell Count 5.81 K/mm3 (4.00-11.30)
[2021-10-29 15:55] LABS: Platelet Count 48 K/mm3 (150-400)
[2021-10-29] MEDS ORDERED: FURO40 PO (21:58)
[2021-10-29] MEDS ORDERED: GABA100 PO (22:02)
[2021-10-30 05:36] LABS: Hematocrit 27.1 % (33.0-51.0); Hemoglobin 8.5 g/dL (11.5-16.0)
--- NOTE | 2021-10-30 06:05 | NUR ---
PM SHIFT SUMMARY PATIENT HERE PER HER ONLINE TRADER DUE TO ABNORMAL LABS. NO CHAIRS AVAILABLE AT [facility] FOR HD. SHE HAS A RIGHT UPPER ARM FISTULA - SHE HAS NOT HAD HD IN 5 YEARS. HER GFR WAS A 7 AND HER NORMAL BASELINE IS AROUND 18. SHE IS CURRENTLY ON CHEMO FOR MULTIPLE MYELOMA AND HER LAST SESSION WAS Tuesday10/26/21. SHE IS A&Ox4 AND INDEPENDENT IN HER ROOM. BUN WAS A 77, CREAT A 5.78 AND PLATELETS AT 48. THE ONLY COMPLAINT SHE HAD DURING SHIFT WAS OF SOME VERY MILD LEG DISCOMFOT - SHE WAS MEDICATED WITH TYLENOL. SHE WILL BE RECEIVING HD HERE TODAY AROUND 9-10AM PER DR. VANCE.
[2021-10-30 06:46] LABS: Albumin, Blood 3.1 g/dL (3.4-5.0); Anion Gap 10 mmol/L (6-16); Blood Urea Nitrogen 80 mg/dL (8-24); Bun/Creatinine Ratio 13.9 (12.0-20.0); CO2, Blood 27 mmol/L (21-32); Calcium, Blood 8.8 mg/dL (8.5-10.1); Chloride, Blood 105 mmol/L (98-108); Creatinine, Blood 5.75 mg/dL (0.40-1.00); Glomerular Filtration Rate 7 (60-); Glucose, Blood 89 mg/dL (70-99); Magnesium, Blood 2.2 mg/dL (1.6-2.4); Phosphorus, Blood 4.8 mg/dL (2.5-4.9); Potassium, Blood 3.5 mmol/L (3.5-5.5); Sodium, Blood 142 mmol/L (136-145)
[2021-10-30 07:11] LABS: BASOPHILS PERCENT AUTO 0 % (0-2); EOSINOPHILS ABSOLUTE AUTO 0.26 K/mm3 (0.00-0.68); EOSINOPHILS PERCENT AUTO 5 % (0-6); Hematocrit 27.1 % (33.0-51.0); Hemoglobin 8.4 g/dL (11.5-16.0); IMMATURE GRAN ABSOLUTE AUTO 0.05 K/mm3 (0.00-0.10); IMMATURE GRAN PERCENT AUTO 1 % (0-1); LYMPHOCYTES ABSOLUTE AUTO 0.44 K/mm3 (0.84-5.20); LYMPHOCYTES PERCENT AUTO 8 % (21-46); MONOCYTES ABSOLUTE AUTO 0.62 K/mm3 (0.16-1.47); MONOCYTES PERCENT AUTO 11 % (4-13); Mean Corpuscular HGB 31.7 pg (26.0-34.0); Mean Corpuscular Volume 102 fL (80-100); Mean Platelet Volume 12.3 fL (9.1-12.4); NEUTROPHILS ABSOLUTE AUTO 4.07 K/mm3 (1.96-9.15); NEUTROPHILS PERCENT AUTO 75 % (41-73); NRBC ABSOLUTE 0.13 K/mm3 (0.00-0.02); NRBC Auto 2.4 /100 WBC (0.0-0.2); RDW Coefficient Variation 16.6 % (11.7-14.2); RDW Standard Deviation 61.4 fL (35.1-46.3); Red Blood Cell Count 2.65 M/mm3 (3.80-5.20); White Blood Cell Count 5.44 K/mm3 (4.00-11.30)
[2021-10-30 07:24] LABS: Platelet Count 30 K/mm3 (150-400)
[2021-10-30 08:16] LABS: BASOPHILS PERCENT MAN 0 % (0-2); EOSINOPHILS ABSOLUTE MAN 0.21 K/mm3 (0.00-0.68); EOSINOPHILS PERCENT MAN 4 % (0-6); LYMPHOCYTES ABSOLUTE MAN 0.43 K/mm3 (0.84-5.20); LYMPHOCYTES PERCENT MAN 8 % (21-46); MONOCYTES ABSOLUTE MAN 0.38 K/mm3 (0.16-1.47); MONOCYTES PERCENT MAN 7 % (4-13); SEG NEUTROPHILS PERCENT MAN 81 % (41-73); TOTAL CELLS COUNTED 100
--- NOTE | 2021-10-30 16:46 | NUR ---
0943 POLLY CALLED FROM LAB PLATELETS 30. NOTIFIED. NO NEW ORDERS
--- NOTE | 2021-10-30 18:48 | NUR ---
PT PLEASANT TODAY. C/O HEADACHE PAIN TODAY. MED PER EMAAR. DID GO TO DIALYSIS TODAY. NO NEW CONCENRS NOTED. BED IN LOWPOSITION, CALL LITE IN REACH, CALLS APPRIOP
--- NOTE | 2021-10-31 04:16 | NUR ---
SHIFT SUMMARY A/OX4, IND IN ROOM. DENIES PAIN OR SOB. FISTULA TO R. ARM. VSS, NO ACUTE CHANGES AT THIS TIME. BED IN LOWEST POSITION WITH CALL LIGHT IN REACH. WILL CONTINUE TO MONITOR AND REPORT TO ONCOMING RN.
[2021-10-31 05:28] LABS: Hemoglobin 9.4 g/dL (11.5-16.0); Mean Corpuscular HGB 31.2 pg (26.0-34.0); Mean Corpuscular HGB Conc 30.3 g/dL (31.5-36.5); Mean Corpuscular Volume 103 fL (80-100); NRBC ABSOLUTE 0.08 K/mm3 (0.00-0.02); NRBC Auto 1.4 /100 WBC (0.0-0.2); RDW Coefficient Variation 17.1 % (11.7-14.2); RDW Standard Deviation 62.2 fL (35.1-46.3); Red Blood Cell Count 3.01 M/mm3 (3.80-5.20)
[2021-10-31 05:50] LABS: Mean Platelet Volume 13.4 fL (9.1-12.4); Platelet Count 39 K/mm3 (150-400)
[2021-10-31 06:07] LABS: Albumin, Blood 3.2 g/dL (3.4-5.0); Anion Gap 12 mmol/L (6-16); Blood Urea Nitrogen 43 mg/dL (8-24); Bun/Creatinine Ratio 11.4 (12.0-20.0); CO2, Blood 28 mmol/L (21-32); Chloride, Blood 103 mmol/L (98-108); Creatinine, Blood 3.77 mg/dL (0.40-1.00); Glomerular Filtration Rate 12 (60-); Glucose, Blood 96 mg/dL (70-99); Magnesium, Blood 2.2 mg/dL (1.6-2.4); Phosphorus, Blood 3.1 mg/dL (2.5-4.9); Potassium, Blood 3.3 mmol/L (3.5-5.5); Sodium, Blood 143 mmol/L (136-145)
[2021-10-31 06:35] LABS: BAND PERCENT MAN 1 % (0-8); BASOPHILS ABSOLUTE MAN 0.05 K/mm3 (0.00-0.23); BASOPHILS PERCENT MAN 1 % (0-2); EOSINOPHILS ABSOLUTE MAN 0.11 K/mm3 (0.00-0.68); EOSINOPHILS PERCENT MAN 2 % (0-6); LYMPHOCYTES ABSOLUTE MAN 0.53 K/mm3 (0.84-5.20); LYMPHOCYTES PERCENT MAN 9 % (21-46); MONOCYTES ABSOLUTE MAN 0.76 K/mm3 (0.16-1.47); MONOCYTES PERCENT MAN 13 % (4-13); NEUTROPHILS ABSOLUTE MAN 4.42 K/mm3 (1.96-9.15); SEG NEUTROPHILS PERCENT MAN 74 % (41-73); TOTAL CELLS COUNTED 100
--- NOTE | 2021-10-31 17:47 | NUR ---
TALKED TO ABOUT PATIENT STATING SHE SOMETIMES GETS INNER EAR PROBLEMS AND WILL GET DIZZY. STS TAKES MECLIZINE WITH GOOD RESULTS. DOES NOT WANT AT THIS TIME BUT WOULD LIKE TO HAVE AVAILABLE. TO ORDER.
--- NOTE | 2021-11-01 04:01 | NUR ---
SHIFT SUMMARY NO ACUTE CHANGES THIS SHIFT. AOX4. VSS. REPORTS CHRONIC NEUROPATHY PAIN IN BLE, MEDICATED c SCHEDULED GABAPENTIN. OTHERWISE DENIES N/V, DYSPNEA OR OTHER DISCOMFORT. +1 EDEMA LLE, TRACE EDEMA RLE. AWAITING [facility] DIALYSIS CHAIR FOR DC. CALL LIGHT IN REACH & PT ABLE TO MAKE NEEDS KNOWN. WILL MONITOR.
[2021-11-01 06:14] LABS: Anion Gap 9 mmol/L (6-16); Blood Urea Nitrogen 46 mg/dL (8-24); CO2, Blood 29 mmol/L (21-32); Calcium, Blood 8.6 mg/dL (8.5-10.1); Chloride, Blood 105 mmol/L (98-108); Creatinine, Blood 4.18 mg/dL (0.40-1.00); Glomerular Filtration Rate 10 (60-); Glucose, Blood 101 mg/dL (70-99); Phosphorus, Blood 3.8 mg/dL (2.5-4.9); Potassium, Blood 3.5 mmol/L (3.5-5.5); Sodium, Blood 143 mmol/L (136-145)
[2021-11-01 06:21] LABS: BASOPHILS ABSOLUTE AUTO 0.03 K/mm3 (0.00-0.23); BASOPHILS PERCENT AUTO 1 % (0-2); EOSINOPHILS ABSOLUTE AUTO 0.15 K/mm3 (0.00-0.68); EOSINOPHILS PERCENT AUTO 3 % (0-6); Hematocrit 30.7 % (33.0-51.0); Hemoglobin 9.4 g/dL (11.5-16.0); IMMATURE GRAN ABSOLUTE AUTO 0.02 K/mm3 (0.00-0.10); IMMATURE GRAN PERCENT AUTO 0 % (0-1); LYMPHOCYTES ABSOLUTE AUTO 0.46 K/mm3 (0.84-5.20); LYMPHOCYTES PERCENT AUTO 10 % (21-46); MONOCYTES ABSOLUTE AUTO 0.72 K/mm3 (0.16-1.47); MONOCYTES PERCENT AUTO 16 % (4-13); Mean Corpuscular HGB 31.8 pg (26.0-34.0); Mean Corpuscular HGB Conc 30.6 g/dL (31.5-36.5); Mean Corpuscular Volume 104 fL (80-100); Mean Platelet Volume 11.9 fL (9.1-12.4); NEUTROPHILS ABSOLUTE AUTO 3.07 K/mm3 (1.96-9.15); NEUTROPHILS PERCENT AUTO 69 % (41-73); NRBC ABSOLUTE 0.08 K/mm3 (0.00-0.02); NRBC Auto 1.8 /100 WBC (0.0-0.2); Platelet Count 57 K/mm3 (150-400); RDW Coefficient Variation 17.6 % (11.7-14.2); RDW Standard Deviation 64.6 fL (35.1-46.3); Red Blood Cell Count 2.96 M/mm3 (3.80-5.20); White Blood Cell Count 4.45 K/mm3 (4.00-11.30)
--- NOTE | 2021-11-01 09:14 | NUR ---
MAGDALENA AND COREG HELD DUE TO DIALYSIS. CIO WILL LET ME KNOW IF SHE NEEDS COREG BEFORE FINISH OF DIALYSIS
[2021-11-01 10:08] LABS: HBSAG SCREEN Negative (Negative); HCV AB <0.1 (0.0-0.9); HEP A AB, IGM Negative (Negative); HEP B CORE AB, IGM Negative (Negative)
--- NOTE | 2021-11-01 15:25 | NUR ---
PATIENT COULD NOT TOLERATE SCD'S YESTERDAY DUE TO NEUROPATHY. REFUSES HEPARIN FOR DVT PROPHALAXIS. KNEE HIGH MORAIMA HOSE APPLIED AND TOLERATING FAIRLY WELL. ADVISED CAN HAVE ON DAYS AND OFF NIGHTS. AWARE TO WEAR NONSKID SOCKS OVER THEM WHEN OOB.
--- NOTE | 2021-11-01 18:13 | NUR ---
DIALYSIS TODAY AND TOLERATED WELL. ALERT. ORIENTED. NO ACUTE CHANGES. AWAITING BED FOR [facility]
--- NOTE | 2021-11-02 05:13 | NUR ---
SHIFT SUMMARY A/OX4, IND IN ROOM. CALM AND COOPERATIVE WITH CARE. R. ARM FISTULA. DENIES PAIN OR SOB. VSS, NO ACUTE CHANGES AT THIS TIME. BED IN LOWEST POSITION WITH CALL LIGHT IN REACH. WILL CONTINUE TO MONITOR AND REPORT TO ONCOMING RN.
[2021-11-02 05:19] LABS: Hematocrit 33.3 % (33.0-51.0)
[2021-11-02 05:45] LABS: Albumin, Blood 3.1 g/dL (3.4-5.0); Anion Gap 7 mmol/L (6-16); Blood Urea Nitrogen 25 mg/dL (8-24); CO2, Blood 30 mmol/L (21-32); Calcium, Blood 8.8 mg/dL (8.5-10.1); Chloride, Blood 105 mmol/L (98-108); Creatinine, Blood 3.12 mg/dL (0.40-1.00); Glomerular Filtration Rate 15 (60-); Glucose, Blood 113 mg/dL (70-99); Magnesium, Blood 2.1 mg/dL (1.6-2.4); Phosphorus, Blood 3.1 mg/dL (2.5-4.9); Potassium, Blood 3.9 mmol/L (3.5-5.5); Sodium, Blood 142 mmol/L (136-145)
--- NOTE | 2021-11-02 17:58 | NUR ---
PT AOX4 AND COOPERTIVE OF CARE PT DISHCHARGED AT 1745. TOOK CARE OVER FROM VENUS LOPEZ EARLIER. ALL PAPERWORK REVIEWED AND EDUCATIONAL MATERIAL SENT WITH PT. NO DISTRESS NOTED AND FRIEND TO TRANSPORT IN CAR FROM N ENTRANCE. AID ESCORTED PT OUT VIA WHEEL CHAIR. ALL PERSONAL BELONGINGS WITH PT.
== END 2021-11-02 18:00 | disposition home or self-care (01) ==
LOC: ER 13:58 → MEDS 21:05 → ENPENDDIS 11-02 12:06 → MEDS 11-02 18:00
PROVIDERS: Family Medicine; Internal Medicine Nephrology; Physician Assistant; ADMIT Internal Medicine
DX: N17.9 Acute kidney failure, unspecified (principal); I12.0 Hypertensive chronic kidney disease with stage 5 chronic kidney disease or end stage renal disease; N18.6 End stage renal disease; C90.00 Multiple myeloma not having achieved remission; E87.70 Fluid overload, unspecified; D63.1 Anemia in chronic kidney disease; E87.2 Acidosis; D84.9 Immunodeficiency, unspecified; E21.3 Hyperparathyroidism, unspecified; G62.9 Polyneuropathy, unspecified; D69.6 Thrombocytopenia, unspecified; Z88.5 Allergy status to narcotic agent; Z88.0 Allergy status to penicillin; Z88.6 Allergy status to analgesic agent; Z91.041 Radiographic dye allergy status; Z79.899 Other long term (current) drug therapy; Z99.2 Dependence on renal dialysis
CPT/HCPCS: 36415; 71045; 80053; 80069; 80074; 83735; 85014; 85018; 85025; 86317; 96372; 99284; A9270; G0257; G0378; J0881

== ENCOUNTER → 2021-11-17 | Outpatient (CLI) | payer MEDICARE, BC ==
[2021-11-17 10:17] LABS: Albumin, Blood 3.5 g/dL (3.4-5.0); Bilirubin, Total 0.9 mg/dL (0.1-1.0); Bun/Creatinine Ratio 9.5 (12.0-20.0); Calcium, Blood 9.3 mg/dL (8.5-10.1); Creatinine, Blood 3.38 mg/dL (0.40-1.00); Globulin, Blood 3.4 g/dL (2.2-4.0); Potassium, Blood 3.3 mmol/L (3.5-5.5); Total Protein, Blood 6.9 g/dL (6.4-8.2)
[2021-11-17 10:21] LABS: BASOPHILS ABSOLUTE AUTO 0.03 K/mm3 (0.00-0.23); BASOPHILS PERCENT AUTO 1 % (0-2); EOSINOPHILS ABSOLUTE AUTO 0.05 K/mm3 (0.00-0.68); EOSINOPHILS PERCENT AUTO 1 % (0-6); Hematocrit 33.5 % (33.0-51.0); Hemoglobin 10.9 g/dL (11.5-16.0); IMMATURE GRAN ABSOLUTE AUTO 0.02 K/mm3 (0.00-0.10); IMMATURE GRAN PERCENT AUTO 0 % (0-1); LYMPHOCYTES ABSOLUTE AUTO 0.28 K/mm3 (0.84-5.20); LYMPHOCYTES PERCENT AUTO 5 % (21-46); MONOCYTES ABSOLUTE AUTO 0.47 K/mm3 (0.16-1.47); MONOCYTES PERCENT AUTO 8 % (4-13); Mean Corpuscular HGB 31.9 pg (26.0-34.0); Mean Corpuscular HGB Conc 32.5 g/dL (31.5-36.5); Mean Corpuscular Volume 98 fL (80-100); Mean Platelet Volume 12.4 fL (9.1-12.4); NEUTROPHILS ABSOLUTE AUTO 4.73 K/mm3 (1.96-9.15); NEUTROPHILS PERCENT AUTO 85 % (41-73); Platelet Count 225 K/mm3 (150-400); RDW Coefficient Variation 15.1 % (11.7-14.2); RDW Standard Deviation 54.1 fL (35.1-46.3); Red Blood Cell Count 3.42 M/mm3 (3.80-5.20); White Blood Cell Count 5.58 K/mm3 (4.00-11.30)
== END | disposition home or self-care (01) ==
LOC: LAB SHORT 09:43 → LAB 09:43
PROVIDERS: Internal Medicine Hematology & Oncology
DX: C90.00 Multiple myeloma not having achieved remission (principal)
CPT/HCPCS: 80053; 85025

== ENCOUNTER → 2022-01-26 | Outpatient (CLI) | payer MEDICARE, BC | END | disposition home or self-care (01) | LOC: LAB 15:30 → LAB SHORT 15:30 | DX: N39.0 Urinary tract infection, site not specified (principal) | CPT/HCPCS: 87077; 87086; 87186 ==

== ENCOUNTER 2022-05-14 17:56 | Emergency (ER) | payer MEDICARE, BC ==
[~2022-05-14] VITALS: Ht 157.5 cm; Wt 61.2 kg
[2022-05-14 19:29] LABS: BASOPHILS PERCENT AUTO 0 % (0-2); EOSINOPHILS ABSOLUTE AUTO 0.01 K/mm3 (0.00-0.68); EOSINOPHILS PERCENT AUTO 0 % (0-6); Hematocrit 24.1 % (33.0-51.0); Hemoglobin 8.4 g/dL (11.5-16.0); IMMATURE GRAN ABSOLUTE AUTO 0.03 K/mm3 (0.00-0.10); IMMATURE GRAN PERCENT AUTO 1 % (0-1); LYMPHOCYTES ABSOLUTE AUTO 0.17 K/mm3 (0.84-5.20); LYMPHOCYTES PERCENT AUTO 4 % (21-46); MONOCYTES ABSOLUTE AUTO 0.48 K/mm3 (0.16-1.47); MONOCYTES PERCENT AUTO 12 % (4-13); Mean Corpuscular HGB 35.4 pg (26.0-34.0); Mean Corpuscular HGB Conc 34.9 g/dL (31.5-36.5); Mean Corpuscular Volume 102 fL (80-100); NEUTROPHILS PERCENT AUTO 84 % (41-73); Platelet Count 106 K/mm3 (150-400); RDW Coefficient Variation 14.1 % (11.7-14.2); RDW Standard Deviation 51.9 fL (35.1-46.3); Red Blood Cell Count 2.37 M/mm3 (3.80-5.20); White Blood Cell Count 4.19 K/mm3 (4.00-11.30)
[2022-05-14 19:38] LABS: Base Excess Venous 4.5 mmol/L; Bicarbonate Venous 28.1 mmol/L (24.0-30.0); pH Blood Venous 7.44 (7.34-7.37)
[2022-05-14 19:46] LABS: Albumin, Blood 3.1 g/dL (3.4-5.0); Albumin/Globulin Ratio 1.2 (0.8-1.8); Bilirubin, Total 0.6 mg/dL (0.1-1.0); Bun/Creatinine Ratio 6.8 (12.0-20.0); Calcium, Blood 8.8 mg/dL (8.5-10.1); Creatinine, Blood 7.3 mg/dL (0.40-1.00); Globulin, Blood 2.6 g/dL (2.2-4.0); Total Protein, Blood 5.7 g/dL (6.4-8.2)
== END 2022-05-14 23:43 | disposition home or self-care (01) ==
LOC: ER 17:56
PROVIDERS: Emergency Medicine
DX: I95.3 Hypotension of hemodialysis (principal); R41.82 Altered mental status, unspecified; I12.9 Hypertensive chronic kidney disease with stage 1 through stage 4 chronic kidney disease, or unspecified chronic kidney disease; N18.4 Chronic kidney disease, stage 4 (severe); D63.1 Anemia in chronic kidney disease; E78.5 Hyperlipidemia, unspecified; Z91.041 Radiographic dye allergy status; Z88.6 Allergy status to analgesic agent; Z88.0 Allergy status to penicillin; Z88.5 Allergy status to narcotic agent; Z79.899 Other long term (current) drug therapy; Z99.2 Dependence on renal dialysis
CPT/HCPCS: 70450; 71045; 80053; 82803; 85025; 93005; 93010; 99285-25

== ENCOUNTER 2022-05-31 12:38 | Emergency (ER) | payer OTHER, MEDICARE, BC ==
[~2022-05-31] VITALS: Ht 157.5 cm; Wt 59.9 kg
[2022-05-31] MEDS ORDERED: POMALYST3 MG PO (13:30)
== END 2022-05-31 14:26 | disposition home or self-care (01) ==
LOC: ER 12:38
DX: S42.331A Displaced oblique fracture of shaft of humerus, right arm, initial encounter for closed fracture (principal); W01.0XXA Fall on same level from slipping, tripping and stumbling without subsequent striking against object, initial encounter; I12.0 Hypertensive chronic kidney disease with stage 5 chronic kidney disease or end stage renal disease; N18.6 End stage renal disease; Z99.2 Dependence on renal dialysis; Z88.5 Allergy status to narcotic agent; Z88.0 Allergy status to penicillin; Z88.6 Allergy status to analgesic agent; Z91.041 Radiographic dye allergy status; Z79.899 Other long term (current) drug therapy
CPT/HCPCS: 73060

== ENCOUNTER 2022-06-04 16:47 | Emergency (ER) | payer MEDICARE, BC ==
[~2022-06-04] VITALS: Ht 157.5 cm; Wt 61.2 kg
[~2022-06-04 16:47] MED LIST changes: +POMALYST3 MG PO
[2022-06-04 18:03] LABS: BASOPHILS ABSOLUTE AUTO 0.01 K/mm3 (0.00-0.23); BASOPHILS PERCENT AUTO 0 % (0-2); EOSINOPHILS ABSOLUTE AUTO 0.02 K/mm3 (0.00-0.68); EOSINOPHILS PERCENT AUTO 0 % (0-6); Hematocrit 28.2 % (33.0-51.0); Hemoglobin 8.9 g/dL (11.5-16.0); IMMATURE GRAN ABSOLUTE AUTO 0.11 K/mm3 (0.00-0.10); IMMATURE GRAN PERCENT AUTO 2 % (0-1); LYMPHOCYTES ABSOLUTE AUTO 0.17 K/mm3 (0.84-5.20); LYMPHOCYTES PERCENT AUTO 3 % (21-46); MONOCYTES ABSOLUTE AUTO 0.89 K/mm3 (0.16-1.47); MONOCYTES PERCENT AUTO 14 % (4-13); Mean Corpuscular HGB 33.7 pg (26.0-34.0); Mean Corpuscular HGB Conc 31.6 g/dL (31.5-36.5); Mean Corpuscular Volume 107 fL (80-100); Mean Platelet Volume 10.2 fL (9.1-12.4); NEUTROPHILS ABSOLUTE AUTO 5.04 K/mm3 (1.96-9.15); NEUTROPHILS PERCENT AUTO 81 % (41-73); Platelet Count 159 K/mm3 (150-400); RDW Coefficient Variation 13.9 % (11.7-14.2); RDW Standard Deviation 54.5 fL (35.1-46.3); Red Blood Cell Count 2.64 M/mm3 (3.80-5.20); White Blood Cell Count 6.24 K/mm3 (4.00-11.30)
[2022-06-04 18:45] LABS: Albumin/Globulin Ratio 0.9 (0.8-1.8); Bilirubin, Total 0.6 mg/dL (0.1-1.0); Bun/Creatinine Ratio 5.1 (12.0-20.0); Calcium, Blood 8.6 mg/dL (8.5-10.1); Creatinine, Blood 10.6 mg/dL (0.40-1.00); Globulin, Blood 3.3 g/dL (2.2-4.0); Potassium, Blood 3.8 mmol/L (3.5-5.5); Total Protein, Blood 6.3 g/dL (6.4-8.2)
--- NOTE | 2022-06-05 13:29 | NUR ---
Pt is a 76 year old woman who is pleasant, alert and oriented. She unfortunately has been diagnosed with CKD stage 4, and multiple myeloma for a 2nd time after a 5 year remission. She came into the ED yesterday with new onset of weakness in her legs, inability to ambulate. She currently has a broken right arm in a brace/immobilizer. This makes it difficult to complete all ADL's, get to chemo and dialysis appt's. She missed a diaylsis this week due the R arm fracture, and she states this is what she believes caused the leg weakness, as she has had similar issues in the past after missing a dialysis. We discussed options, and she is hoping to return home today, if her strength has returned. Requested a PT eval for her, and Dr. Lopez is ordering this. If recommended, she is willing to go to SNF for strengthening. Pt is adamant she be able to leave her home to her niece when she passes away, and states she isn't willing to sign up for Medicaid due to this. Pt does need some mcc planning, but she is tearful today and states she has not, but she realizes it's time to start. Depending on what PT recommends, may place a consult to [facility] outpatient Palliative.
== END 2022-06-05 17:13 | disposition home or self-care (01) ==
LOC: ER 16:47
PROVIDERS: Emergency Medicine
DX: R53.1 Weakness (principal); I12.0 Hypertensive chronic kidney disease with stage 5 chronic kidney disease or end stage renal disease; N18.6 End stage renal disease; Z99.2 Dependence on renal dialysis; Z88.5 Allergy status to narcotic agent; Z88.0 Allergy status to penicillin; Z88.6 Allergy status to analgesic agent; Z91.041 Radiographic dye allergy status; Z79.899 Other long term (current) drug therapy
CPT/HCPCS: 36415; 71045; 80053; 84484; 85025; 93005; 93010; 97162; 97530; A9270

== ENCOUNTER 2022-06-10 11:36 | Inpatient (IN) | payer MEDICARE, BC ==
[~2022-06-10] VITALS: Ht 157.5 cm; Wt 58.2 kg
[2022-06-10 12:56] LABS: Source, Urine Voided
[2022-06-10 13:05] LABS: Bilirubin, Urine Neg (Neg); Blood, Urine 3+ (Neg); Glucose Qualitative, Urine 1+ (Neg); Ketones, Urine Neg (Neg); Leukocyte Esterase, Urine 3+ (Neg); Nitrite, Urine Neg (Neg); Protein, Urine 3+ (Neg); Specific Gravity, Urine 1.005 (1.003-1.022); Urobilinogen, Urine NORM (Normal)
[2022-06-10 13:11] LABS: Hematocrit 28.8 % (33.0-51.0); Hemoglobin 8.6 g/dL (11.5-16.0); Mean Corpuscular HGB 33.3 pg (26.0-34.0); Mean Corpuscular HGB Conc 29.9 g/dL (31.5-36.5); Mean Corpuscular Volume 112 fL (80-100); Mean Platelet Volume 10.6 fL (9.1-12.4); Platelet Count 136 K/mm3 (150-400); RDW Coefficient Variation 13.5 % (11.7-14.2); RDW Standard Deviation 55.6 fL (35.1-46.3); Red Blood Cell Count 2.58 M/mm3 (3.80-5.20)
[2022-06-10 13:12] LABS: Appearance, Urine Hazy (Clear); Bacteria Few /hpf; Color, Urine Yellow (P-Yellow); Squamous Epithelial Cells Few /hpf (Few); White Blood Cells, Urine 50-100 /hpf (0-5)
[2022-06-10 13:29] LABS: Magnesium, Blood 1.8 mg/dL (1.6-2.4)
[2022-06-10 13:32] LABS: Albumin, Blood 2.7 g/dL (3.4-5.0); Albumin/Globulin Ratio 0.8 (0.8-1.8); Bilirubin, Total 0.4 mg/dL (0.1-1.0); Calcium, Blood 8.4 mg/dL (8.5-10.1); Creatinine, Blood 13.3 mg/dL (0.40-1.00); Globulin, Blood 3.2 g/dL (2.2-4.0); Potassium, Blood 4.7 mmol/L (3.5-5.5); Total Protein, Blood 5.9 g/dL (6.4-8.2)
[2022-06-10 13:36] LABS: Influenza B, PCR NEGATIVE (NEGATIVE); Resp Syncytial Virus, PCR NEGATIVE (NEGATIVE); SARS-Cov-2 (COVID-19) PCR, MMC NEGATIVE (NEGATIVE)
[2022-06-10 13:42] LABS: Influenza A, PCR POSITIVE (NEGATIVE)
[2022-06-10 14:06] LABS: BAND PERCENT MAN 7 % (0-8); BASOPHILS PERCENT MAN 0 % (0-2); EOSINOPHILS ABSOLUTE MAN 0.05 K/mm3 (0.00-0.68); EOSINOPHILS PERCENT MAN 1 % (0-6); METAMYELOCYTE ABSOLUTE MAN 0.05 K/mm3 (0.00-0.00); METAMYELOCYTE PERCENT MAN 1 % (0-0); MONOCYTES ABSOLUTE MAN 0.33 K/mm3 (0.16-1.47); MONOCYTES PERCENT MAN 6 % (4-13); MYELOCYTE ABSOLUTE MAN 0.05 K/mm3 (0.00-0.00); MYELOCYTE PERCENT MAN 1 % (0-0); NEUTROPHILS ABSOLUTE MAN 5.09 K/mm3 (1.96-9.15); SEG NEUTROPHILS PERCENT MAN 84 % (41-73); TOTAL CELLS COUNTED 100
[2022-06-11 05:21] LABS: BASOPHILS PERCENT AUTO 0 % (0-2); EOSINOPHILS ABSOLUTE AUTO 0.02 K/mm3 (0.00-0.68); EOSINOPHILS PERCENT AUTO 1 % (0-6); Hemoglobin 7.9 g/dL (11.5-16.0); IMMATURE GRAN ABSOLUTE AUTO 0.02 K/mm3 (0.00-0.10); IMMATURE GRAN PERCENT AUTO 1 % (0-1); LYMPHOCYTES ABSOLUTE AUTO 0.05 K/mm3 (0.84-5.20); LYMPHOCYTES PERCENT AUTO 2 % (21-46); MONOCYTES ABSOLUTE AUTO 0.07 K/mm3 (0.16-1.47); MONOCYTES PERCENT AUTO 3 % (4-13); Mean Corpuscular HGB 33.9 pg (26.0-34.0); Mean Corpuscular HGB Conc 30.4 g/dL (31.5-36.5); Mean Corpuscular Volume 112 fL (80-100); Mean Platelet Volume 10.8 fL (9.1-12.4); NEUTROPHILS ABSOLUTE AUTO 1.91 K/mm3 (1.96-9.15); NEUTROPHILS PERCENT AUTO 92 % (41-73); Platelet Count 108 K/mm3 (150-400); RDW Coefficient Variation 13.7 % (11.7-14.2); RDW Standard Deviation 55.9 fL (35.1-46.3); Red Blood Cell Count 2.33 M/mm3 (3.80-5.20); White Blood Cell Count 2.07 K/mm3 (4.00-11.30)
[2022-06-11 05:41] LABS: Albumin, Blood 2.4 g/dL (3.4-5.0); Albumin/Globulin Ratio 0.8 (0.8-1.8); Bilirubin, Total 0.4 mg/dL (0.1-1.0); Bun/Creatinine Ratio 5.3 (12.0-20.0); Calcium, Blood 8.5 mg/dL (8.5-10.1); Creatinine, Blood 7.69 mg/dL (0.40-1.00); Globulin, Blood 3.2 g/dL (2.2-4.0); Magnesium, Blood 2.1 mg/dL (1.6-2.4); Phosphorus, Blood 5.4 mg/dL (2.5-4.9); Potassium, Blood 4.3 mmol/L (3.5-5.5); Total Protein, Blood 5.6 g/dL (6.4-8.2)
--- NOTE | 2022-06-11 07:22 | NUR ---
SHIFT SUMMARY; NO ACUTE CHANGES OVERNIGHT. PT WAS RECIEVING DIALYSIS AT THE BEGINNING OF SHIFT. THEREFORE, AFTER DIALYSIS THE PT WAS TIRED. THIS AM THE PT IS AXO X4. B/P IS STABLE AT 122/54. PT REMAINS ON 2L O2 TO MAINTAIN O2 SATS GREATER THAN 92%. PT WAS ABLE TO USE THE BSC WITH A 2 PERSON ASSIST THIS AM. PT DENIES ANY PAIN/SOB AT THIS TIME. CURRENTLY THE PT IS RESTING IN BED WITH THE BED IN THE LOWEST POSITION AND THE CALL LIGHT AT BEDSIDE.
--- NOTE | 2022-06-11 10:23 | NUR ---
DIALYSIS RUN FOR 1HR 36MIN, PT C/O NOT FEELING WELL, BP OF 73/42, AFIB PER PEST CONTROL SERVICE TECHNICIAN. TX TERMINATED EARLY BLOOD RETURNED ADDITONAL NS BOLUS GIVEN, BEDSIDE RN DID EKG. CARE TRANSFERRED TO BEDSIDE RN. MD NOTIFIED
--- NOTE | 2022-06-11 12:01 | NUR ---
11.10 RECEIVED PT AT 1100 FROM DAY RN. SHE IS JUST FINISHED DIALYSIS. FLUID OFF 860 GAVE BACK 400 NET FOR 460 OFF. BP DROPPED AND DURING DIALYSIS TO 73/47 & 89/75 H/R 147. 100 ML BOLUS ORDERED AND STARTED. MIDODRINE ORDERED AND GIVEN AT 1100. LITE CRACKLES BASES OF LUNGS. ON 2L O2. RECHECK BP AT 11.30 NOW 90/50 & 96/60, H/R PER TELE AFIB RVR AND SVT AT 180-190. CALLED DR LANDEROS BACK. ORDERS TO MOVE PT TO ICU RM 9. REPORT TO MIMI LOPEZ. PT TRANFERRED AT 1200. DISCUSSED WITH FREELANCE INTERPRETER/TRANSLATOR DYANI
--- NOTE | 2022-06-11 12:38 | NUR ---
TRANSFER TO ICU PT ARRIVED TO ICU 9 VIA BED AT 1205. PT IS AWAKE, ALERT, AND ORIENTED. PT IS SLOW TO RESPOND TO QUESTIONS, BUT ANSWERS APPROPRIATELY. PT QUICKLY FALLS ASLEEP WHEN NOT PROMPTED WITH QUESTIONS. PT HR AFIB 180'S INITIALLY. 10 MG IV CARDIZEM GIVEN WITH HR NOW 130-140'S. WILL START CARDIZEM GTT PER DR LANDEROS ORDERS. PT WITH SLING TO RIGHT ARM WITH PRIOR HUMORUS FRACTURE. DIALYSIS FISTULA TO RIGHT FOREARM NOTED. PERIPHERAL IV TO LAC IN PLACE WITH NS BOLUS INFUSING. PT ON 2L O2 NC, LS CLEAR T/O. PT WITH MOIST COUGH. PT INCONTINENT OF STOOL UPON ARRIVAL. NEW ATTENDS PLACED. WILL CONTINUE TO MONITOR.
[2022-06-11 13:29] LABS: Hematocrit 26.3 % (33.0-51.0); Hemoglobin 7.9 g/dL (11.5-16.0)
[2022-06-11 14:17] LABS: Percent Saturation 10.1 % (15.0-50.0)
[2022-06-11 16:34] LABS: Anti-Xa UFH, PHA Monitoring <0.10 IU/mL; International Normalized Ratio 1.05
--- NOTE | 2022-06-11 17:54 | NUR ---
SHIFT SUMMARY PT HAS BEEN DROWSEY/LETHARGIC, BUT IS AROUSEABLE TO VERBAL STIMULI. PT IS ALERT AND ORIENTED. PT ANSWERS QUESTIONS APPROPRIATELY. PT COMPLAINS OF PAIN TO RIGHT ARM WITH MOVEMENT IN BED. VITAL SIGNS HAVE REMAINED STABLE WITH CARDIZEM GTT INFUSING AT 10 MG/HR. HEPARIN GTT STARTED THIS EVENING, INFUSING AT 15 UNITS/KG/HR. PICC PLACED TO [facility]. PT ON 2L O2 NC. RIGHT ARM REMAINS IN SLING. PT WITH MULTIPLE VISITORS THIS EVENING. WILL CONTINUE TO MONITOR AND REPORT OFF TO ONCOMING RN.
--- NOTE | 2022-06-12 05:40 | NUR ---
SHIFT SUMMARY PT DROWSY BUT IS AROUSEABLE TO VERBAL STIMULI AND A&O X4. ROJAS BUT C/O WEAKNESS TO BLE AND PAIN TO RUE. RT ARM IN SLING D/T FRACTURE. CARDIZEM DRIP STILL INFUSING TO KEEP HR <110 PER ORDER. HR VARIES FROM 90-110'S AND BP LOW BUT STABLE WHEN RETAKEN IF TOO LOW. HEPARIN GTT STILL INFUSING AT 15 UNITS/KG/HR. PT ON 2L NC WITH CLEAR/COARSE BREATH SOUNDS. OCCCASIONAL NONPRODUCTIVE COUGH. O2 SATS STABLE IN MID-90'S. NO C/O PAIN OR SOB.
[2022-06-12 06:35] LABS: BASOPHILS PERCENT AUTO 0 % (0-2); EOSINOPHILS PERCENT AUTO 0 % (0-6); Hematocrit 18.4 % (33.0-51.0); IMMATURE GRAN ABSOLUTE AUTO 0.02 K/mm3 (0.00-0.10); IMMATURE GRAN PERCENT AUTO 1 % (0-1); LYMPHOCYTES ABSOLUTE AUTO 0.06 K/mm3 (0.84-5.20); LYMPHOCYTES PERCENT AUTO 4 % (21-46); MONOCYTES ABSOLUTE AUTO 0.17 K/mm3 (0.16-1.47); MONOCYTES PERCENT AUTO 10 % (4-13); Mean Corpuscular HGB 33.5 pg (26.0-34.0); Mean Corpuscular HGB Conc 29.9 g/dL (31.5-36.5); Mean Corpuscular Volume 112 fL (80-100); Mean Platelet Volume 10.5 fL (9.1-12.4); NEUTROPHILS ABSOLUTE AUTO 1.41 K/mm3 (1.96-9.15); NEUTROPHILS PERCENT AUTO 85 % (41-73); Platelet Count 104 K/mm3 (150-400); RDW Standard Deviation 57.8 fL (35.1-46.3); Red Blood Cell Count 1.64 M/mm3 (3.80-5.20); White Blood Cell Count 1.66 K/mm3 (4.00-11.30)
[2022-06-12 06:39] LABS: Hemoglobin 5.5 g/dL (11.5-16.0)
--- NOTE | 2022-06-12 07:11 | NUR ---
END OF SHIFT UPDATE: PT HGB THIS AM WAS 5.5, INFORMED DR. KWON. ORDER TO STOP HEPARIN DRIP AND TRANSFUSE 2 UNITS OF PRBC. NO SIGNS OF BLEEDING. WILL PASS ON TO DAY RN
[2022-06-12 07:15] LABS: Magnesium, Blood 2.2 mg/dL (1.6-2.4)
[2022-06-12 07:28] LABS: Albumin, Blood 2.1 g/dL (3.4-5.0); Anion Gap 9 mmol/L (6-16); Blood Urea Nitrogen 41 mg/dL (8-24); CO2, Blood 30 mmol/L (21-32); Chloride, Blood 100 mmol/L (98-108); Creatinine, Blood 6.81 mg/dL (0.40-1.00); Glomerular Filtration Rate 6 (60-); Glucose, Blood 100 mg/dL (70-99); Phosphorus, Blood 8.4 mg/dL (2.5-4.9); Potassium, Blood 4.2 mmol/L (3.5-5.5); Sodium, Blood 139 mmol/L (136-145)
[2022-06-12 08:11] LABS: HBSAG SCREEN Negative (Negative)
--- NOTE | 2022-06-12 09:16 | NUR ---
ASSUMED CARE PT IS ALERT AND ORIENTED X4 W/ SPO2 >92% ON NC. MAP >65. CARDIZEM GTT GOING AT 5MG/HR. PT'S HGB WAS 5.5, BUT PT IS RELATIVELY ASYMPTOMATIC EXCEPT FOR SOME LETHARGY.
--- NOTE | 2022-06-12 14:59 | NUR ---
PT UPDATE.... THE PT PUT HER CALL LIGHT ON TO USE THE BSC. THIS RN TOOK ANOTHER RN INTO THE ROOM FOR TRANSFER SUPPORT. THE PT SAID "WELL I HOPE YOU GUYS ARE STRONG ENOUGHT TO PICK ME UP." THIS RN THEN QUESTIONED THE PT ON HER ABILITY TO STAND AND INFORMED THE PT IF SHE WAS NOT ABLE TO HELP WITH STANDING/TRANSFER SHE WOULD HAVE TO USE THE BED PATEL. THE PT STATED "WELL I DON'T WANT TO USE THE BEDPAN I'LL STAND." THE PT WAS ABLE TO STAND WITH MINIMAL SUPPORT. AFTER THE PT WAS OFF THE BSC SHE WAS SITTING ON THE SIDE OF THE BED. THE PT HAD BEEN C/O THE BRACE ON HER LEFT ARM "NOT BEING ON CORRECTLY." THIS RN HAS OFFERED SEVERAL TIMES TO READJUST THE ARM BRACE, EACH TIME THE PT HAS SAID "WAIT UNTIL I'M SITTING UP ON THE SIDE OF THE BED." THIS RN OFFERED TO READJUST THE ARM BRACE AT THIS TIME WHILE THE PT WAS SITTING UP ON THE SIDE OF THE BED. THE PT STATED "NO! YOU HAVE NEVER SEEN A BRACE LIKE THIS BEFORE SO YOU WON'T KNOW HOW TO DO IT! I WANT THE ORTHO DOCTOR TO COME IN AND FIX IT!" THIS RN INFORMED THE PT THAT THE ORTHO DOCTOR WOULD NOT BE ABLE TO COME INTO THE HOSPITAL TO FIX THE ARM BRACE. THE PT THEN STATED "WELL THEN I DON'T WANT YOU TO TOUCH IT BECAUSE IT WILL HURT." WILL CONITNUE TO MONITOR.
[2022-06-12 16:22] LABS: Hematocrit 24.3 % (33.0-51.0); Hemoglobin 7.7 g/dL (11.5-16.0)
--- NOTE | 2022-06-12 17:55 | NUR ---
SHIFT SUMMARY PT ALERT AND ORIENTED X4. MAP >65; HR IN THE 90-100S. SPO2 >92% ON RA. RIGHT ARM PAINFUL W/ REPOSITIONING, BUT FINE AT REST. PT REFUSED JOSE RAUL RN W/ HELP READJUSTING SLING (SEE NOTE). PT HAS HAD LOW APPETITE AND SOME DIZZINESS WHEN ADJUSTING HEIGHT OF HOB. 2 UNITS RBC TRANSFUSED W/ NO ISSUES. CARDIZEM GTT ON SB, 30MG PO CARDIZEM STARTED. PRODUCTIVE COUGH STILL THERE, BUT LESS FREQUENT. PT IS LESS LETHARGIC AFTER TRANSFUSION.
--- NOTE | 2022-06-12 20:33 | NUR ---
ASSUMPTION OF CARE/ASSESSMENT: ASSUMED CARE OF PT AT 1900. PT IS A&O X 4; PT HAS A FLAT AFFECT BUT PARTICIPATES IN CONVERSATION. PT IS DROWSY BUT EASILY WAKES UP TO VERBAL STIMULI, AND THEN FALLS BACK ASLEEP QUICKLY. PERRLA BILAT. PT SPEECH APPROPRIATE. PT HAS CLEAR LUNG SOUNDS IN THE UPPER LOBES, AND CRACKLES IN THE MID-LOWER RIGHT LOBES. PT STATES DIFFICULTY EXPELLING SPUTUM, EXIBITS WEAK COUGH. PT ON RA WITH SPO2 99< AND RR 16-18. PT IN AFIB ON MONITOR WITH HR 70-90'S, SBP 100'S, MAP 65<; NO C/O CHEST PAIN. PT HAS HYPOACTIVE BS IN ALL FOUR QUADRANTS. PT USING BEDSIDE COMMODE FOR ELIMINATION WITH A SBA. PT PPP X 4, EXTREMITIES ARE WARM AND CAP REFIL < 3 SECONDS. PT USES CALL LIGHT APPROPRIATELY, BED LOWERED, WILL CONTINUE TO MONITOR.
[2022-06-13 05:18] LABS: BASOPHILS ABSOLUTE AUTO 0.01 K/mm3 (0.00-0.23); BASOPHILS PERCENT AUTO 1 % (0-2); EOSINOPHILS ABSOLUTE AUTO 0.01 K/mm3 (0.00-0.68); EOSINOPHILS PERCENT AUTO 1 % (0-6); Hematocrit 30.3 % (33.0-51.0); Hemoglobin 9.9 g/dL (11.5-16.0); IMMATURE GRAN ABSOLUTE AUTO 0.01 K/mm3 (0.00-0.10); IMMATURE GRAN PERCENT AUTO 1 % (0-1); LYMPHOCYTES ABSOLUTE AUTO 0.06 K/mm3 (0.84-5.20); LYMPHOCYTES PERCENT AUTO 5 % (21-46); MONOCYTES ABSOLUTE AUTO 0.14 K/mm3 (0.16-1.47); MONOCYTES PERCENT AUTO 10 % (4-13); Mean Corpuscular HGB 32.8 pg (26.0-34.0); Mean Corpuscular HGB Conc 32.7 g/dL (31.5-36.5); Mean Platelet Volume 11.2 fL (9.1-12.4); NEUTROPHILS ABSOLUTE AUTO 1.11 K/mm3 (1.96-9.15); NEUTROPHILS PERCENT AUTO 83 % (41-73); Platelet Count 65 K/mm3 (150-400); RDW Coefficient Variation 18.5 % (11.7-14.2); Red Blood Cell Count 3.02 M/mm3 (3.80-5.20); White Blood Cell Count 1.34 K/mm3 (4.00-11.30)
[2022-06-13 05:31] LABS: Mean Corpuscular Volume 100 fL (80-100)
--- NOTE | 2022-06-13 06:25 | NUR ---
SHIFT SUMMARY: NO ACUTE CHANGES THIS SHIFT. PT HAS SLEPT THROUGH THE NIGHT. PT DECLINED OFFERS FOR REPOSITIONING THROUGHOUT THE NIGHT. PT HGB THIS MORNING UP TO 9.9. PT PUT ON NPO AFTER MIDNIGHT IN PREP FOR PROCEDURE. VSS THROUGHOUT THE NIGHT. WILL CONTINUE TO MONITOR UNTIL ONCOMING RN ARRIVES.
[2022-06-13 07:43] LABS: Magnesium, Blood 2.1 mg/dL (1.6-2.4)
[2022-06-13 08:00] LABS: Albumin, Blood 2.1 g/dL (3.4-5.0); Anion Gap 14 mmol/L (6-16); Blood Urea Nitrogen 59 mg/dL (8-24); Bun/Creatinine Ratio 7.3 (12.0-20.0); CO2, Blood 26 mmol/L (21-32); Calcium, Blood 8.2 mg/dL (8.5-10.1); Chloride, Blood 100 mmol/L (98-108); Creatinine, Blood 8.11 mg/dL (0.40-1.00); Glomerular Filtration Rate 5 (60-); Glucose, Blood 104 mg/dL (70-99); Phosphorus, Blood 9.2 mg/dL (2.5-4.9); Potassium, Blood 4.1 mmol/L (3.5-5.5); Sodium, Blood 140 mmol/L (136-145)
--- NOTE | 2022-06-13 12:58 | NUR ---
ASSUMED CARE PT IS ALERT AND ORIENTED X4. SPO2 >92% ON 2L NC; MAP >65; HR AFIB IN THE 80S. DR MACKAY IN TO TALK TO PT ABOUT RISKS OF PERMACATH PROCEDURE D/T NEUTROPENIA AND ANESTHESIA RISK. DISCUSSED W/ PT AND PT SEEMS OPEN TO LETTING DIALYSIS ACCESS RIGHT ARM FISTULA. PT IS RESISTANT TO REPOSITIONING, BUT ALLOWS SMALL TURNS/REFUSES RIGHT SIDED TURNS. NO C/O CP, SOB, NAUSEA AT THIS TIME.
--- NOTE | 2022-06-13 13:00 | NUR ---
UPDATE PT BACK FROM DIALYSIS ALERT AND ORIENTED X4 W/ NO C/O CP, SOB, OR NAUSEA. SPO2 >92% ON 2L NC; MAP >65; SBP IN THE 150'S. HR HAS BEEN BOUNCING UP INTO THE 140'S, BUT HAS SINCE BEEN IN THE 100-110S.
[2022-06-13 13:08] LABS: Stool Occult Blood Guaiac 1 Neg (Neg)
--- NOTE | 2022-06-13 17:03 | NUR ---
INTERNAL TRANSFER RECEIVED PT FROM ICU, TRANSPORTED BY BED. RN'S MIMI AND JOSE RAUL ASSISTED WITH A SLIDE TRANSFER TO [facility] BED. PT C/O INTERMITTENT NAUSEA "I GET NAUSEOUS FROM TIME TO TIME, BUT NOT RIGHT NOW THOUGH." PT ORIENTED TO ROOM AND UNIT. PT STATED NO FURTHER NEEDS AT THIS TIME.
--- NOTE | 2022-06-13 17:13 | NUR ---
TRANSFER OF CARE PT TRANSFERRED TO MEDICAL FLOOR W/ NO PROBLEMS. BEFORE TRANSFER PT STATED THAT SHE HAD SOME CHEST TIGHTNESS, BUT NO PAIN STARTING AN HOUR BEFORE LETTING THIS RN KNOW. SAYS PAIN COMES WITH INSPIRATION. AFTER BOOSTING AND REPOSITIONING, PT STATES TIGHTNESS IS RELIEVED. DR LANDEROS NOTIFIED AND WAS TOLD TO HAVE RT ASSESS AND GIVE BREATHING TREATMENT.
[2022-06-13] MEDS ORDERED: DEXA4 PO (20:58)
--- NOTE | 2022-06-14 04:32 | NUR ---
SHIFT SUMMARY 76 YR F ADMITTED ON 06/10/22 FOR INFLUENZA. FULL CODE. PT HAS SLEPT FOR ENTIRE SHIFT AND VERBALLY EXPRESSES HER DISLIKE OF BEING WOKE UP FOR MEDS OR LABS.NO C/O PAIN, CHEST TIGHTNESS, OR SOB THIS SHIFT.
[2022-06-14 04:34] LABS: BASOPHILS ABSOLUTE AUTO 0.01 K/mm3 (0.00-0.23); BASOPHILS PERCENT AUTO 1 % (0-2); EOSINOPHILS ABSOLUTE AUTO 0.02 K/mm3 (0.00-0.68); EOSINOPHILS PERCENT AUTO 2 % (0-6); Hematocrit 31.8 % (33.0-51.0); Hemoglobin 10.3 g/dL (11.5-16.0); IMMATURE GRAN ABSOLUTE AUTO 0.04 K/mm3 (0.00-0.10); IMMATURE GRAN PERCENT AUTO 4 % (0-1); LYMPHOCYTES ABSOLUTE AUTO 0.09 K/mm3 (0.84-5.20); LYMPHOCYTES PERCENT AUTO 9 % (21-46); MONOCYTES PERCENT AUTO 20 % (4-13); Mean Corpuscular HGB 32.3 pg (26.0-34.0); Mean Corpuscular HGB Conc 32.4 g/dL (31.5-36.5); Mean Corpuscular Volume 100 fL (80-100); NEUTROPHILS ABSOLUTE AUTO 0.66 K/mm3 (1.96-9.15); NEUTROPHILS PERCENT AUTO 65 % (41-73); Platelet Count 54 K/mm3 (150-400); RDW Coefficient Variation 17.2 % (11.7-14.2); RDW Standard Deviation 63.9 fL (35.1-46.3); Red Blood Cell Count 3.19 M/mm3 (3.80-5.20); White Blood Cell Count 1.02 K/mm3 (4.00-11.30)
[2022-06-14 04:58] LABS: Albumin, Blood 2.4 g/dL (3.4-5.0); Anion Gap 12 mmol/L (6-16); Blood Urea Nitrogen 46 mg/dL (8-24); Bun/Creatinine Ratio 7.7 (12.0-20.0); CO2, Blood 28 mmol/L (21-32); Calcium, Blood 8.6 mg/dL (8.5-10.1); Chloride, Blood 100 mmol/L (98-108); Creatinine, Blood 5.94 mg/dL (0.40-1.00); Glomerular Filtration Rate 7 (60-); Glucose, Blood 111 mg/dL (70-99); Magnesium, Blood 2.4 mg/dL (1.6-2.4); Phosphorus, Blood 7.1 mg/dL (2.5-4.9); Potassium, Blood 3.7 mmol/L (3.5-5.5); Sodium, Blood 140 mmol/L (136-145)
--- NOTE | 2022-06-14 11:04 | NUR ---
ONCOLOGY CONSULT CALL FROM OVIDIO CRANDALL NP, HOLD CHEMO DUE ON 06/15/22. [facility] WILL FOLLOW UP WITH PATIENT AFTER DISCHARGE, PLAN TO RESUME CHEMO ON 06/22/22 SCHEDULED.
--- NOTE | 2022-06-14 18:21 | NUR ---
END OF SHIFT SUMMARY: PATIENT DENIED PAIN WHEN AT REST THROUGHOUT THE SHIFT. PATIENT REPORTED SHARP PAIN WITH MOVEMENT IN HER RIGHT ARM, INCLUDING COUGHING. PATIENT DENIED NEED FOR INTERVENTION. PATIENT EXPRESSED STRONG FEELINGS OF SADNESS ABOUT HER CURRENT PROGNOSIS AND THE JOURNEY AHEAD OF HER. PATIENT IS HESITANT TO ACCEPT HELP FROM FAMILY AND FRIENDS. PATIENT HAD TWO VISITORS TODAY THAT EXPRESSED WILLINGNESS TO ASSIST. ENCOURAGED PATIENT TO REACH OUT TO FAMILY AND FRIENDS. THIS AFTERNOON, NOTIFIED BY TELEMETRY THAT PATIENT WAS EXPERIENCING AN INCREASE IN HER RATE (110S-120S). UPON RECHECK, PATIENT WAS IN THE HIGH 90S AND OCCASIONALLY LOW 100S. VITALS STABLE. SCHEDULED HEART RATE MEDICATION GIVEN. PATIENT DENIED SIGNS OR SYMPTOMS OF ELEVATED HR.
--- NOTE | 2022-06-15 04:22 | NUR ---
CALL FROM [employer] STATING PATIENT HAD 5-BEAT RUN OF VTACH @ 1476. PT ASYMPTOMATIC; NO CP CP OR PALPITATIONS.
[2022-06-15 05:30] LABS: Hematocrit 30.3 % (33.0-51.0); Hemoglobin 9.5 g/dL (11.5-16.0); Mean Corpuscular HGB 31.7 pg (26.0-34.0); Mean Corpuscular HGB Conc 31.4 g/dL (31.5-36.5); Mean Corpuscular Volume 101 fL (80-100); Mean Platelet Volume 10.7 fL (9.1-12.4); Platelet Count 61 K/mm3 (150-400); RDW Coefficient Variation 16.8 % (11.7-14.2); RDW Standard Deviation 62.7 fL (35.1-46.3)
[2022-06-15 05:35] LABS: BASOPHILS ABSOLUTE AUTO 0.02 K/mm3 (0.00-0.23); BASOPHILS PERCENT AUTO 2 % (0-2); EOSINOPHILS ABSOLUTE AUTO 0.01 K/mm3 (0.00-0.68); EOSINOPHILS PERCENT AUTO 1 % (0-6); IMMATURE GRAN ABSOLUTE AUTO 0.01 K/mm3 (0.00-0.10); IMMATURE GRAN PERCENT AUTO 1 % (0-1); LYMPHOCYTES ABSOLUTE AUTO 0.04 K/mm3 (0.84-5.20); LYMPHOCYTES PERCENT AUTO 5 % (21-46); MONOCYTES ABSOLUTE AUTO 0.22 K/mm3 (0.16-1.47); MONOCYTES PERCENT AUTO 25 % (4-13); NEUTROPHILS ABSOLUTE AUTO 0.59 K/mm3 (1.96-9.15); NEUTROPHILS PERCENT AUTO 66 % (41-73)
[2022-06-15 05:37] LABS: White Blood Cell Count 0.89 K/mm3 (4.00-11.30)
[2022-06-15 06:03] LABS: Albumin, Blood 2.3 g/dL (3.4-5.0); Anion Gap 11 mmol/L (6-16); Blood Urea Nitrogen 68 mg/dL (8-24); Bun/Creatinine Ratio 8.7 (12.0-20.0); CO2, Blood 29 mmol/L (21-32); Calcium, Blood 8.5 mg/dL (8.5-10.1); Chloride, Blood 100 mmol/L (98-108); Creatinine, Blood 7.82 mg/dL (0.40-1.00); Glomerular Filtration Rate 5 (60-); Glucose, Blood 141 mg/dL (70-99); Magnesium, Blood 2.3 mg/dL (1.6-2.4); Phosphorus, Blood 6.7 mg/dL (2.5-4.9); Potassium, Blood 3.6 mmol/L (3.5-5.5); Sodium, Blood 140 mmol/L (136-145)
--- NOTE | 2022-06-15 07:13 | NUR ---
INTERNAL RECRUITER SUMMARY: A&Ox4. PLEASANT AND COOPERATIVE WITH CARE. CALLS APPROPRIATELY AND COMMUNICATES NEEDS EFFECTIVELY. TELE PICKED UP 5 BEATS OF VTACH @ 2156 LAST NIGHT. PT ASYMPTOMATIC. C/O SORE THROAT LAST NIGHT, BUT DID NOT WANT THROAT LOZENGE; WANTED BUTTERSCOTCH CANDY AND WAS DISPLEASED WHEN I TOLD HER I DID NOT HAVE ONE. SETTLED FOR A POPSICLE. BLOOD DRAWN FROM PICC THIS AM; CRITICALLY LOW WBC 0.89. PER DR VANCE, PT WILL UNDERGO DIALYSIS TODAY AND HE WOULD LIKE DR RODRIGUEZ TO CONSULT. ORDER PLACED; DAY RN WILL NOTIFY HIS OFFICE. TELE AFIB/AFLUTTER. ASYMPTOMATIC. IRREGULAR RHYTHM ON AUSCULTATION. WILL REPORT TO ONCOMING RN.
--- NOTE | 2022-06-15 10:45 | NUR ---
RECIEVED A CALL FROM TELE PT HR TACHY- AFIB RVR INTO THE 160-170'S. CALLED DR LANDEROS RECIEVED ORDERS TO STOP DIALYSIS CALLED DAVID IN DIALYSIS WHO EXPRESSED CONCERN OVER DOING THIS, FACILITATED COMMUNICATION BEWEEN HE AND DR LANDEROS, DAVID CALLED DR VANCE PER DR LANDEROS REQUEST. DR VANCE AGREED STOP DIALYSIS AT THIS TIME. PER DR LANDEROS THIS RN SHOULD WAIT 10 MINUTES AFTER DIALYSIS IS STOPPED, IF THE HR DOES NOT COME DOWN THEN GIVE IV CARDIZIEM. PER VERBAL ORDER FROM DR VANCE CARDIOLOGY WAS CONSULTED FOR AFIB RVR.
--- NOTE | 2022-06-15 11:20 | NUR ---
DIALYSIS STOPPED AND HR CONTINUES TO BE AFIB WITH RVR TOUCHING HIGH 178 PRIOR TO THE START OF THE IV PUSH. PT DENIES CHEST PAIN BUT DOES STATE "JUST TIGHT, A LITTLE HARD TO BREATHE." IV CARDIZIEM DOSE ADMINISTERED PRIOR TO BRINGING THE PT BACK FROM THE DIALYSIS ROOM.
--- NOTE | 2022-06-15 12:10 | NUR ---
CALLED DR LANDEROS- PT RECIEVED IV MEDICATION, BP IS STILL STABLE HR IS STILL 120'S-130'S ON TELE. PO VERSION OF THIS MED IS SCHEDULED. PER DR LANDEROS HOLD THHE PO CARDIZIEM AND ADMINISTER AN ADDITIONAL 10MG IV DOSE. PLACED THE ORDER AND AM WAITING FOR THE MED TO COME FROM PHARMACY.
--- NOTE | 2022-06-15 13:13 | NUR ---
Pt did not tolerate dialysis well today. She began to experience tachycardia an hour in, was given cardizem push and HD d/c'd for today. Pt is now back in her room, appears to be sleeping. Appears fragile. WBC 0.89 today; critical low. ConcettaDATABASE SOFTWARE TECHNICIAN with Oncology prescribed Filgrastim x's 1 to boost WBC production. According to JaronRN in HD reports it's extremely painful for pt have R arm port accessed due to R arm being broken and in a brace. Pt is not a surgical candidate, so no fracture repair or new port can be placed. I placed a call to pt's niece Violet to update her on these changes. She sounded suprised, stated she thought pt was doing "pretty well" overall. Pt's code status remains Full Code, which is concerning due to pt's poor prognosis. Plan to speak to pt again when she is awake and alert, be sure she understands current issues, and review code status with her. Palliative care will continue with supportive visits, and continue with education to both pt and family as they allow.
--- NOTE | 2022-06-15 14:04 | NUR ---
CALLED DR ARVIND MONTILLA RECIEVED A SECOND DOSE OF CARDIZIEM AN HOUR AGO. HR IS NOW 110'S TO 120'S, SO SLIGHT IMPROVEMENT. ORDER TO CTM FOR AN ADDITIONAL 30 MINUTES AND CALL IF THE HR PERSISTS ABOVE 120.
--- NOTE | 2022-06-15 14:40 | NUR ---
CALLED DR LANDEROS- PT HR STILL PERSISTING IN THE 120-130'S PER TELE. MD AWARE RECIEVED ORDER FOR IN HOUSE TRANSFER TO PCU AND START A CARDIZIEM DRIP. DOCUMENT DESIGN SPECIALIST AWARE, AWAITING BED ASSIGNMENT.
--- NOTE | 2022-06-15 14:59 | NUR ---
Met with pt at bedside, discussed code status. She is currently a full code, and there are multiple reasons for concern if pt required CPR/mechanical ventilation. Pt's current condition as well as prognosis is poor r/t kidney disease, multiple myeloma, neutropenia, R arm fracture, poor access to HD port, weakness, lack of appetite. Pt states, "That's a hard question, I'll have to think about it" in relation to changing code status. She remains alert and oriented and able to make her needs and wants known, and elects to remain a full code at this time. Follow up call to pt's niece, she has indicated to her niece she does wish to remain a full code. Discussion with Concetta Tamez NP covering for Dr. Bishop, and has similar concerns. However, pt remains hopeful for recovery. Will remain in contact with Concetta, update her if pt's condition worsens. Update: Pt en route to PCU.
--- NOTE | 2022-06-15 18:47 | NUR ---
NURSING PCU DAYSHIFT SUMMARY: No significant changes since arrival to the unit. HR 110-120, no c/o CP/pressure. Respirations remain rapid, O2 sat low to mid 90's on RA, productive cough. Spoke w/cardiology, new d/o received. Diltiazem gtt dicontinued, PO digoxin and metoprolol tartrate administered. Family currently at bedside, plan of care discussed, questions addressed. Pt appears to be resting comfortably and denies any current needs, cont to monitor until rpt is given to NOC RN.
[2022-06-16 05:32] LABS: Hematocrit 28.7 % (33.0-51.0); Hemoglobin 9.1 g/dL (11.5-16.0); Mean Corpuscular HGB 32.5 pg (26.0-34.0); Mean Corpuscular HGB Conc 31.7 g/dL (31.5-36.5); Mean Corpuscular Volume 103 fL (80-100); Mean Platelet Volume 11.7 fL (9.1-12.4); Platelet Count 91 K/mm3 (150-400); RDW Coefficient Variation 16.7 % (11.7-14.2); RDW Standard Deviation 63.7 fL (35.1-46.3); White Blood Cell Count 2.41 K/mm3 (4.00-11.30)
[2022-06-16 05:51] LABS: Albumin, Blood 2.2 g/dL (3.4-5.0); Anion Gap 8 mmol/L (6-16); Blood Urea Nitrogen 50 mg/dL (8-24); Bun/Creatinine Ratio 6.8 (12.0-20.0); CO2, Blood 31 mmol/L (21-32); Calcium, Blood 8.8 mg/dL (8.5-10.1); Chloride, Blood 103 mmol/L (98-108); Creatinine, Blood 7.31 mg/dL (0.40-1.00); Glomerular Filtration Rate 5 (60-); Glucose, Blood 144 mg/dL (70-99); Phosphorus, Blood 5.7 mg/dL (2.5-4.9); Sodium, Blood 142 mmol/L (136-145)
--- NOTE | 2022-06-16 05:51 | NUR ---
Shift summary: No acute events overnight. Pt rested comfortably in bed throughout the night. Still lethargic but able to follow commands. No c/o pain except when moving patient, pain to right upper shoulder. No chest pain or pressure. HR in low 100s throughout the night, in A.fib. Pt had c/o anxiety at one point and felt SOB, PRN ativan given per EMAR and increased O2 to 4L NC for comfort. Now on 3L NC but still tachypnic.
[2022-06-16 05:59] LABS: BAND PERCENT MAN 10 % (0-8); BASOPHILS ABSOLUTE MAN 0.02 K/mm3 (0.00-0.23); BASOPHILS PERCENT MAN 1 % (0-2); EOSINOPHILS PERCENT MAN 0 % (0-6); LYMPHOCYTES ABSOLUTE MAN 0.02 K/mm3 (0.84-5.20); LYMPHOCYTES PERCENT MAN 1 % (21-46); METAMYELOCYTE ABSOLUTE MAN 0.02 K/mm3 (0.00-0.00); METAMYELOCYTE PERCENT MAN 1 % (0-0); MONOCYTES ABSOLUTE MAN 0.12 K/mm3 (0.16-1.47); MONOCYTES PERCENT MAN 5 % (4-13); NEUTROPHILS ABSOLUTE MAN 2.21 K/mm3 (1.96-9.15); SEG NEUTROPHILS PERCENT MAN 82 % (41-73); TOTAL CELLS COUNTED 100
--- NOTE | 2022-06-16 18:28 | NUR ---
PT SUMMARY: PT HAS POOR APPETITE FOR THE SHIFT HAD ONLY 50% NEPRO PER TOTAL INTAKE, SLEEPING AND LETHARGIC. WAS ABLE TO WORK WITH PT/OT GOT UP ON THE COMMODE TWICE. PT IS VERY PAINFUL ON RIGHT ARM EVEN FINGERTIPS ARE SWOLLEN AND IS PAINFUL TO TOUCH 8/10 WITH MOVEMENTS REPORTS 0/10 WHEN RESTED. ARM WITH SLING IN PLACE AND INTACT RESTED ON A PILLOW. PT HAD A SMALL LOOSE BROWN BM THIS MORNING, PT RECEIVED A QUICK BATH WHILE ON THE COMMODE PER RETAIL AREA MANAGER, PT TOLERATED. VITALS HRR AFIB STABLE AND CONTROLLED AT 80-100'S, SBP 120-130'S, SATS KEPT ABOVE 90% ON 2L OF O2, AFEBRILE. PALLIATIVE CARE NURSE WAS GIVEN UPDATE REAGARDING PT'S STATUS, NIECE WAS IN THE ROOM AT THE MOMENT WAS ALSO GIVEN UPDATE. NO OTHER ISSUES ENCOUNTERED FOR THE SHIFT, PT CALLS APPROPRIATELY ABLE TO MAKE NEEDS KNOWN, WILL REPORT TO ONCOMING SHIFT
--- NOTE | 2022-06-17 05:40 | NUR ---
Shift summary: No acute events overnight. Pt rested comfortably in bed throughout the night. Still lethargic but able to follow commands. No c/o pain except when moving patient, pain to right upper shoulder. No chest pain or pressure. HR in low 100s throughout the night, in A.fib. Increased O2 NC to 3L for comfort. Lung sounds are coarse/wheezy throughout but no c/o SOB. When trying to obtain AM labs from [facility] PICC line, all ports were able to be flushed, however would only give 1-2ml of blood. Informed cupola charger insulation and was told that PICC nurse would only be able to use alteplase to declot. Will pass on to day RN.
[2022-06-17 05:47] LABS: Hematocrit 33.6 % (33.0-51.0); Hemoglobin 10.6 g/dL (11.5-16.0)
[2022-06-17 06:27] LABS: Magnesium, Blood 2.6 mg/dL (1.6-2.4)
[2022-06-17 06:42] LABS: Albumin, Blood 2.3 g/dL (3.4-5.0); Anion Gap 15 mmol/L (6-16); Blood Urea Nitrogen 83 mg/dL (8-24); Bun/Creatinine Ratio 9.3 (12.0-20.0); CO2, Blood 26 mmol/L (21-32); Calcium, Blood 8.8 mg/dL (8.5-10.1); Chloride, Blood 103 mmol/L (98-108); Creatinine, Blood 8.95 mg/dL (0.40-1.00); Glomerular Filtration Rate 4 (60-); Glucose, Blood 159 mg/dL (70-99); Phosphorus, Blood 7.6 mg/dL (2.5-4.9); Potassium, Blood 4.4 mmol/L (3.5-5.5); Sodium, Blood 144 mmol/L (136-145)
--- NOTE | 2022-06-17 18:37 | NUR ---
SHIFT SUMMARY NO ACUTE EVENTS THIS SHIFT, VSS. PT ON 2L VIA NASAL CANNULA, TOLERATING WELL WITH O2 SAT >90%. PT REMAINED IN A FIB THIS SHIFT, 90s-110s. PT ABLE TO ASSIST WITH ROLLING IN BED FOR BEDPAN. PT'S L ARM REMAINED IN SLING T/O SHIFT. PT DECLINED MEDICATIONS IN LIQUID FORM TODAY. VANILLA NEPRO PROVIDED PER PT REQUEST, POOR APPETITE TODAY WITH LITTLE PO INTAKE. NAD, WCTM UNTIL NOC SHIFT.
--- NOTE | 2022-06-17 20:59 | NUR ---
ASSUMPTION OF CARE THIS RN ASSUMED CARE OF PATIENT AT 1900. REPORT TAKEN FROM STACIE LOPEZ. AFIB NOTED ON THE MONITOR WITH HR 80-100S. PATIENT DENIES ALL PAIN, BUT STATES THAT HER RIGHT ARM HURTS WITH MOVEMENT. PT IN SHOULDER IMMOBILIZER AND SLING DUE TO RIGHT HUMERUS FX. VITALS STABLE. PATIENT WITH OLIGURIA DUE TO ESRD AND HD DONE EVERY OTHER DAY. PATIENT APPEARS WEAK WITH MOVEMENT AND WITH CONVERSATION. KEEPS EYES CLOSED DURING CONVERSATION. ANSWERING APPROPRIATELY AND ABLE TO MAKE NEEDS KNOWN. PATIENT REPOSITIONED AND APPEARS TO BE RESTING. BED IN LOWEST POSITION AND CALL LIGHT WITHIN REACH. THIS RN WILL REVIEW CHART AND CONTINUE TO PROVIDE INTERVENTIONS NEEDED/ORDERED.
[2022-06-18 04:23] LABS: Hematocrit 35.9 % (33.0-51.0); Hemoglobin 11.5 g/dL (11.5-16.0); LYMPHOCYTES ABSOLUTE AUTO 0.09 K/mm3 (0.84-5.20); LYMPHOCYTES PERCENT AUTO 1 % (21-46); MONOCYTES ABSOLUTE AUTO 0.35 K/mm3 (0.16-1.47); MONOCYTES PERCENT AUTO 4 % (4-13); Mean Corpuscular HGB 32.5 pg (26.0-34.0); Mean Corpuscular Volume 101 fL (80-100); Mean Platelet Volume 11.2 fL (9.1-12.4); Platelet Count 193 K/mm3 (150-400); RDW Coefficient Variation 16.6 % (11.7-14.2); RDW Standard Deviation 62.1 fL (35.1-46.3); Red Blood Cell Count 3.54 M/mm3 (3.80-5.20); White Blood Cell Count 9.75 K/mm3 (4.00-11.30)
[2022-06-18 04:24] LABS: BASOPHILS ABSOLUTE AUTO 0.01 K/mm3 (0.00-0.23); BASOPHILS PERCENT AUTO 0 % (0-2); EOSINOPHILS PERCENT AUTO 0 % (0-6); IMMATURE GRAN ABSOLUTE AUTO 0.13 K/mm3 (0.00-0.10); IMMATURE GRAN PERCENT AUTO 1 % (0-1); NEUTROPHILS ABSOLUTE AUTO 9.17 K/mm3 (1.96-9.15); NEUTROPHILS PERCENT AUTO 94 % (41-73)
--- NOTE | 2022-06-18 04:33 | NUR ---
SHIFT SUMMARY NO ACUTE CHANGES OVERNIGHT. PATIENT CONTINUES TO BE IN AFIB WITH HR 90-100S. PATIENT DENIES CHEST PAIN/PRESSURE. PATIENT ONLY COMPLAINS OF PAIN IN RIGHT ARM WHICH IS FRACTURED; SHOULDER IMMOBILIZER AND SLING IN PLACE. BP STABLE. AFEBRILE. PATIENT ABLE TO MOVE SELF IN BED AND REFUSED THIS RN'S OFFERS OF ASSISTANCE WITH REPOSITIONING DURING THE NIGHT. PATIENT'S PICC LINE FLUSHES WELL, CAPS CHANGED, BUT IS NOT DRAWING BACK BLOOD AT THIS TIME. NO URINE OUTPUT THIS SHIFT; PATIENT HAS ESRD AND RECEIVED HD 06/17. PATIENT IS ABLE TO MAKE NEEDS KNOWN AND ORIENTED FULLY. BED IN LOWEST POSITION AND CALL LIGHT WITHIN REACH. THIS RN WILL CONTINUE TO MONITOR UNTIL SHIFT CHANGE AT 0700.
[2022-06-18 04:48] LABS: Albumin, Blood 2.3 g/dL (3.4-5.0); Anion Gap 11 mmol/L (6-16); Blood Urea Nitrogen 65 mg/dL (8-24); Bun/Creatinine Ratio 10.5 (12.0-20.0); CO2, Blood 31 mmol/L (21-32); Calcium, Blood 9.1 mg/dL (8.5-10.1); Chloride, Blood 96 mmol/L (98-108); Creatinine, Blood 6.22 mg/dL (0.40-1.00); Glomerular Filtration Rate 7 (60-); Glucose, Blood 93 mg/dL (70-99); Magnesium, Blood 2.2 mg/dL (1.6-2.4); Phosphorus, Blood 6.1 mg/dL (2.5-4.9); Potassium, Blood 3.8 mmol/L (3.5-5.5); Sodium, Blood 138 mmol/L (136-145)
--- NOTE | 2022-06-18 10:39 | NUR ---
CARE ASSUMPTION THIS RN ASSUMED CARE AT 0700 FROM JOHNNY LOPEZ. VSS. TELE AFIB 90S. PATIENT IS ALERT AND ORIENTED X4. PERRLA. PATIENT REPORTS NO PAIN. PATIENT REPORTS NO SHORTNESS OF BREATH. COARSE LUNG SOUNDS. PATIENT REPORTS NO CHEST PAIN/PRESSURE. SKIN IS CLEAN DRY AND INTACT. ABD IS SOFT ACTIVE AND TENDER. SEE SHIFT ASSSESSMENT FOR FURTHER DETIALS. PATIENT HAS GENERALIZED FATIGUE STATES FROM EVERYTHING THAT IS GOING ON. PATIENT DOESN'T HAVE PAIN IN HER RIGHT ARM, UNLESS SHE MOVES IT. RIGHT ARM SLING AND IMMBOLIZER IN PLACE. PLAN OF CARE UP TO DATE. CALL LIGHT WITHIN REACH AND BED IN LOWEST POSITION.
--- NOTE | 2022-06-18 17:28 | NUR ---
SHIFT SUMMARY PATIENT NEURO REMAINS UNCHANGED THIS SHIFT. NO ACUTE CHANGES THIS SHIFT. PATIENT REFUSED ALL LIQUID MEDICATIONS THIS SHIFT. PATIENT REFUSES REPOSITIONING DUE TO RIGHT SHOULDER. PATIENT RIGHT SHOULDER IS IN A SLING AND IMMOBILZER. PATIENT UP TO BEDSIDE COMODE ONE PERSON ASSIST AND WORKED WITH PHYSICAL THERAPY DURING THIS. PATIENT WAS TIRED FROM THIS AND RETURNED TO BED ONCE FINISHED. PATIENT HAS USED THE BED PATEL THE REST OF THE SHIFT. PATIENT IS ABLE TO MAKE NEEDS KNOWN AND USES CALL LIGHT APPROPRIATELY. PATIENT HAS VISTORS AT BEDSIDE. CALL LIGHT IS WITHIN REACH AND BED IN LOWEST POSITION. WILL CONTINUE TO MONITOR AND PROVIDE CARE UNTIL GIVING REPORT TO ONCOMING NIGHT RN.
[2022-06-19 04:22] LABS: Hematocrit 35.5 % (33.0-51.0); Hemoglobin 11.1 g/dL (11.5-16.0)
--- NOTE | 2022-06-19 04:27 | NUR ---
SHIFT SUMMARY NO ACUTE CHANGES DURING THIS SHIFT. ALERT AND ORIENTED FULLY. AFIB ON TELE WITH HR 90-100S. PATIENT CALM AND COOPERATIVE WITH CARE. PATIENT CALLING APPROPRIATELY. VSS. SEE ASSESSMENT. PATIENT APPEARS TO BE RESTING AT THIS TIME. BED IN LOWEST POSITION AND CALL LIGHT WITHIN REACH. THIS RN WILL CONTINUE TO MONITOR UNTIL SHIFT CHANGE AT 0700.
[2022-06-19 04:41] LABS: Magnesium, Blood 2.4 mg/dL (1.6-2.4)
[2022-06-19 04:42] LABS: Albumin, Blood 2.2 g/dL (3.4-5.0); Anion Gap 13 mmol/L (6-16); Blood Urea Nitrogen 88 mg/dL (8-24); CO2, Blood 28 mmol/L (21-32); Calcium, Blood 8.7 mg/dL (8.5-10.1); Chloride, Blood 98 mmol/L (98-108); Creatinine, Blood 7.97 mg/dL (0.40-1.00); Glomerular Filtration Rate 5 (60-); Glucose, Blood 89 mg/dL (70-99); Phosphorus, Blood 5.4 mg/dL (2.5-4.9); Potassium, Blood 3.7 mmol/L (3.5-5.5); Sodium, Blood 139 mmol/L (136-145)
--- NOTE | 2022-06-19 16:36 | NUR ---
DIALYSIS WENT TO PT'S ROOM TO START DIALYSIS. PT MENTIONED THAT SHE WAS SUPPOSE TO RUN IN THE AM. TOLD HER THAT WE HAD SEVERAL PTS TO RUN AND WE GET TO THEN WE CAN. PT HAS A FRACTURE ON HER RIGHT ARM WITH A REMOVEABLE CAST.UNFORTUNATELY THAT IS ALSO WHERE HER FISTULA IS. IT TOOK SOME TIME TO GET THE CAST OFF PER HER INSTRUCTIONS. SHE SAYS IT HURTS HER WHEN HER SKIN IS TOUCHED. MAKING THE PROCESS LONG AND DIFFICULT. HER FISTULA HAS NEVER BEEN AN EASY STICK, I GOT THE NEEDLES IN AND STARTED THE TX. SHE MOSTLY SLEPT WHILE WATCHING TV, THE TX HAD BEEN GOING WELL. SHE DECIDED SHE WANTED OFF TX. SHE MENTIONED SEVERAL TIMES THAT SHE WAS SUPPOSE TO RUN IN THE AM. SHE RAN 1 HOUR.
--- NOTE | 2022-06-19 17:00 | NUR ---
END OF SHIFT: NERUO: PATIENT IS ALERT AND ORIENTED X 4, PLEASANT, ABLE TO MAKE NEEDS KNOWN, DECREASED ROM OF THE RUE D/T Fx, DENIES N/T. CARDIAC: PATIENT HAD DIALYSIS TODAY, IN HAS BEEN 80-130, CURRENLTY IN THE 90-110'S AFIB, DENIES CHEST PAIN/PRESSURE OR SOB AT REST. PATIENT BP HAS BEEN NORMOTENSIVE FOR PATIENT. PULM: SPO2 >94% ON 0-2L VIA NC, IS ABLE TO TOLERATE BREAKS, DR VANCE TELEPHONE ORDER FOR 1 X SOLUMEDROL 125MG X 1 THIS AM WHEN HE ROUNDED, AROUND 200 mL OFF FROM DIALYSIS. PATIENT IS IN NO SIGN OF ACUTE DISTRESS AT THIS TIME, WILL CONTINUE TO MONITOR UNTIL SHIFT CHANGE.
--- NOTE | 2022-06-19 21:08 | NUR ---
ASSUMPTION OF CARE THIS RN ASSUMED CARE OF PATIENT AT 1900. REPORT TAKEN FROM ABEL LOPEZ. PATIENT ON 2L VIA NC WITH O2 SATS >92%. BP STABLE. AFEBRILE. AFIB ON THE MONITOR WIHT HR 80-90S. PATIENT DENIES CHEST PAIN/PRESSURE. PATIENT ALERT AND ORIENTED FULLY AND IS ABLE TO MAKE NEEDS KNOWN. PATIENT ABLE TO MOVE SELF IN BED FOR COMFORT AND ASKS STAFF FOR ASSISTANCE IF NEEDED. SEE ASSESSMENT. THIS RN WILL REVIEW CHART AND PROVIDE INTERVENTIONS NEEDED/ORDERED.
[2022-06-20 03:49] LABS: Hemoglobin 11.4 g/dL (11.5-16.0)
[2022-06-20 04:13] LABS: Albumin, Blood 2.4 g/dL (3.4-5.0); Anion Gap 14 mmol/L (6-16); Blood Urea Nitrogen 85 mg/dL (8-24); Bun/Creatinine Ratio 10.8 (12.0-20.0); CO2, Blood 27 mmol/L (21-32); Calcium, Blood 8.8 mg/dL (8.5-10.1); Chloride, Blood 96 mmol/L (98-108); Creatinine, Blood 7.88 mg/dL (0.40-1.00); Glomerular Filtration Rate 5 (60-); Glucose, Blood 157 mg/dL (70-99); Magnesium, Blood 2.4 mg/dL (1.6-2.4); Phosphorus, Blood 7.7 mg/dL (2.5-4.9); Potassium, Blood 4.3 mmol/L (3.5-5.5); Sodium, Blood 137 mmol/L (136-145)
--- NOTE | 2022-06-20 04:19 | NUR ---
SHIFT SUMMARY NO ACUTE CHANGES OVERNIGHT. PATIENT CONTINUES TO BE IN AFIB WITH HR 70-90s AT REST. DENIES CHEST PAIN/PRESSURE. BP STABLE. AFEBRILE. PATIENT ALERT AND ORIENTED FULLY. ABLE TO MAKE NEEDS KNOWN AND CALLING APPROPRIATELY. BED IN LOWEST POSITION AND CALL LIGHT WITHIN REACH. THIS RN WILL CONTINUE TO MONITOR UNTIL SHIFT CHANGE AT 0700.
--- NOTE | 2022-06-20 15:32 | NUR ---
END OF SHIFT: NEURO: ALERT AND ORIENTED X 4. PLESANT, COOPERATIVE WITH CARE. DENIES N/T IN THE RIGHT ARM AT THIS TIME. CARDIAC: DENIES CHEST PAIN/PRESSURE, OR SOB. PATIENT HAS A COUPLE TIMES TODAY WERE 2.1 SECS BETWEEN BEATS VERY RARE, PATIENT ASYMPTOMATIC. AFIB 70-100'S. NO DIALYSIS TODAY, PLAN FOR TOMORROW. PULM: SPO2 >96 ON 2L VIA NC, DECREASED THROUGH THE DAY TO 1L AND PATIENT TOLERATES BREAKS WHERE PATIENT TAKES OFF NC AND SPO2 90-93% GI/ APPETITE IS SLOWLY INCREASING, HOWEVER, STILL POOR, DENIES SUPPLEMENTAL DRINKS AT THIS TIME. PATIENT IS MED TELE, PATIENT HAS NO CONCERNS AT THIS TIME. WILL CONTINUE TO MONITOR UNTIL SHIFT CHANGE.
--- NOTE | 2022-06-21 05:00 | NUR ---
SHIFT SUMMARY PT IS A/Ox4 AND IS COOPERATIVE WITH CARE PROVIDED BY STAFF. PT HAS SLEPT T/O MOST OF THE NIGHT, BUT IS EASILY AROUSABLE. HAS MAINTAINED SPO2 >95% ON 1L VIA NC WITH NO SOB OR DYSPNEA REPORTED. CARDIAC EM, PT REMAINS IN AFIB WITH A HR RANGING FROM THE 80-90'S. HR DID ALEJANDRO DOWN A COUPLE TIMES LAST NIGHT, BUT THIS RATE WOULD NOT SUSTAIN. NO CP OR PRESSURE REPORTED T/O THE SHIFT. RIGHT ARM CONTINUES TO BE IN AN IMMOBILZER DUE TO RIGHT ARM FX. PT HAS NOT COMPLAINED OF PAIN OR REQUESTED PAIN MANAGEMENT T/O THE SHIFT. PT RECEIVED DIALYSIS ON 06/19 AND WILL POTENTIALLY BE GETTING DIALYSIS WELL. VSS, NADN T/O THE SHIFT
[2022-06-21 08:24] LABS: Hematocrit 34.8 % (33.0-51.0); Hemoglobin 11.3 g/dL (11.5-16.0)
[2022-06-21 08:52] LABS: Magnesium, Blood 2.7 mg/dL (1.6-2.4)
[2022-06-21 08:58] LABS: Albumin, Blood 2.4 g/dL (3.4-5.0); Anion Gap 17 mmol/L (6-16); Blood Urea Nitrogen 114 mg/dL (8-24); CO2, Blood 25 mmol/L (21-32); Calcium, Blood 8.7 mg/dL (8.5-10.1); Chloride, Blood 98 mmol/L (98-108); Glucose, Blood 99 mg/dL (70-99); Potassium, Blood 4.1 mmol/L (3.5-5.5); Sodium, Blood 140 mmol/L (136-145)
[2022-06-21 09:04] LABS: Bun/Creatinine Ratio 11.4 (12.0-20.0); Creatinine, Blood 9.98 mg/dL (0.40-1.00); Glomerular Filtration Rate 4 (60-); Phosphorus, Blood 8.8 mg/dL (2.5-4.9)
--- NOTE | 2022-06-21 17:19 | NUR ---
SHIFT SUMMARY; ASSUMED CARE AT 0700. A/A/OX4 DURING SHIFT. DIAYLSIS COMPLETE TODAY. RIGHT ARM IN SPLINT AND SLING. REFUSES PHYSICAL THERAPY, SLEEPS MOST OF AFTERNOON FOLLOWING DIALYSIS. MEDICATED PER EMAR. REPOSITIONS SELF IN BED, OLGURIA DUE TO RENAL FUNCTION. NO ACUTE MEDICAL CHANGES, WILL CONTINUE TO MONITOR AND TREAT UNTIL CHANGE OF SHIFT.
[2022-06-22 04:41] LABS: Hematocrit 32.4 % (33.0-51.0); Hemoglobin 10.4 g/dL (11.5-16.0)
[2022-06-22 04:58] LABS: Albumin, Blood 2.9 g/dL (3.4-5.0); Anion Gap 12 mmol/L (6-16); Blood Urea Nitrogen 60 mg/dL (8-24); Bun/Creatinine Ratio 9.6 (12.0-20.0); CO2, Blood 28 mmol/L (21-32); Calcium, Blood 8.4 mg/dL (8.5-10.1); Chloride, Blood 95 mmol/L (98-108); Creatinine, Blood 6.26 mg/dL (0.40-1.00); Glomerular Filtration Rate 7 (60-); Glucose, Blood 79 mg/dL (70-99); Magnesium, Blood 2.3 mg/dL (1.6-2.4); Phosphorus, Blood 6.7 mg/dL (2.5-4.9); Potassium, Blood 3.7 mmol/L (3.5-5.5); Sodium, Blood 135 mmol/L (136-145)
--- NOTE | 2022-06-22 06:11 | NUR ---
SHIFT SUMMARY A/OX3, OFTEN REFUSING REPOSITIONS AND STATES SHE IS TIRED. APPEARED TO SLEEP T/O THE NIGHT. TELE RUNNING SR IN THE 80S, DENIES CHEST PAIN/PRESSURE. PICC TO JI FLUSHES WELL BUT DOES NOT DRAW. VSS, NO ACUTE CHANGES AT THIS TIME. BED IN LOWEST POSITION WITH CALL LIGHT IN REACH. WILL CONTINUE TO MONITOR AND REPORT TO ONCOMING RN.
--- NOTE | 2022-06-22 12:30 | NUR ---
UPDATE: REPORT GIVEN TO IVY LOPEZ. PT TRANSFERRED TO [facility] ROOM 308. ALL BELONGINGS WITH PT.
--- NOTE | 2022-06-22 17:28 | NUR ---
NOTE PT RESTING QUIETLY. SHE TRANSFERED FROM PCU TODAY. FAMILY AT BEDSIDE. SHE STATES THAT SHE IS NON VOID D/T DIALYSIS. SHE DOESN'T WANT TO FUSS WITH GETTING UP TOT HE BSC D/T HER RIGHT ARM SLING. SHE JUST WANTS TO USE THE BEDPAN. SHE IS STARTING TO MOVE HER FINGERS AND WIGGLE HER WRIST IN THE SLING LIKE THE OT SHOWED HER. SHE DENIES NEED FOR PAIN MEDICATION. RA. PICC LINE PATENT. CONTINUE POC.
[2022-06-23 04:11] LABS: IMMUNOGLOBULIN G, QN, SERUM 184 mg/dL (586-1602)
--- NOTE | 2022-06-23 05:00 | NUR ---
SHIFT SUMMARY 76 YR F ADMITTED ON 06/10/22 FOR CONSTANTINE Spears FULL CODE. NO ACUTE CHANGES THIS SHIFT. PT HAS SLEPT FOR MOST OF THIS SHIFT BUT DID WAKE TO TAKE HER MEDS. NO C/O PAIN. SHE DID NOT WANT TO BE REPOSITIONED.
[2022-06-23 06:16] LABS: Hematocrit 33.8 % (33.0-51.0); Hemoglobin 10.9 g/dL (11.5-16.0)
[2022-06-23 06:50] LABS: Magnesium, Blood 2.4 mg/dL (1.6-2.4)
[2022-06-23 07:02] LABS: Albumin, Blood 2.7 g/dL (3.4-5.0); Anion Gap 13 mmol/L (6-16); Blood Urea Nitrogen 82 mg/dL (8-24); Bun/Creatinine Ratio 9.9 (12.0-20.0); CO2, Blood 27 mmol/L (21-32); Calcium, Blood 8.4 mg/dL (8.5-10.1); Chloride, Blood 96 mmol/L (98-108); Creatinine, Blood 8.28 mg/dL (0.40-1.00); Glomerular Filtration Rate 5 (60-); Glucose, Blood 100 mg/dL (70-99); Phosphorus, Blood 7.4 mg/dL (2.5-4.9); Potassium, Blood 3.8 mmol/L (3.5-5.5); Sodium, Blood 136 mmol/L (136-145)
[2022-06-23 12:11] LABS: A/G RATIO 1.2 (0.7-1.7); ALBUMIN 2.8 g/dL (2.9-4.4); ALPHA-1-GLOBULIN 0.2 g/dL (0.0-0.4); ALPHA-2-GLOBULIN 1.3 g/dL (0.4-1.0); BETA GLOBULIN 0.7 g/dL (0.7-1.3); GAMMA GLOBULIN 0.2 g/dL (0.4-1.8); GLOBULIN, TOTAL 2.4 g/dL (2.2-3.9); IMMUNOFIXATION RESULT, SERUM Comment: (.); IMMUNOGLOBULIN A, QN, SERUM 10 mg/dL (64-422); IMMUNOGLOBULIN G, QN, SERUM 179 mg/dL (586-1602); IMMUNOGLOBULIN M, QN, SERUM <5 mg/dL (26-217); M-SPIKE 0.1 g/dL (Not Observed); PROTEIN, TOTAL, SERUM 5.2 g/dL (6.0-8.5)
--- NOTE | 2022-06-23 16:14 | NUR ---
PT HAS HAD A ROUGH DAY. DIALYSIS TREATMENT REALLY MAKES HER FEEL POOR. SHE STATED, "I HATE THIS. I HATE THE WAY I FEEL." ASKED IF SHE WAS THINKING ABOUT STOPPING. SHE STATED NOT YET. SHE HAS DECLINED MULTIPLE MEDICATIONS AFTER DIALYISIS. SHE FINALLY SLEPT ENOUGH TO TAKE HER EVENING PILLS. REFUSED LUNCH. REFUSED LIQUIDS. JUST WANTS TO BE LEFT ALONE. HAS DENIED PAIN OR DESIRE FOR TYLENOL. VSS. CONTINUE TO MONITOR.
--- NOTE | 2022-06-24 03:12 | NUR ---
SHIFT SUMMARY NOC PT A/OX4. PT WAS STILL FEELING POOR AFTER DIALYSIS IN AM. PT TOOK ALL RX EXCEPT FOR ALUMINUM HYDROXIDE. PT DID NOT VOID OR HAVE BM DURING SHIFT. PT WAS PLEASANT AND COOPERATIVE WITH CARE DESPITE NOT FEELING WELL. PT VSS. PT HAS SLEPT THE ENTIRETY OF SHIFT AFTER RX PASS AND ASSESSMENT. PT STILL ON TELE AT NSR WITH HR OF 75 BPM. PT IS CURRENTLY RESTING WITH RAILS UP, BED IN LOWEST POSITION, AND CALL LIGHT WITHIN REACH.
[2022-06-24 05:14] LABS: Hematocrit 30.5 % (33.0-51.0); Hemoglobin 9.9 g/dL (11.5-16.0)
[2022-06-24 05:33] LABS: Albumin, Blood 3.7 g/dL (3.4-5.0); Anion Gap 14 mmol/L (6-16); Blood Urea Nitrogen 40 mg/dL (8-24); Bun/Creatinine Ratio 7.5 (12.0-20.0); CO2, Blood 27 mmol/L (21-32); Chloride, Blood 93 mmol/L (98-108); Glomerular Filtration Rate 8 (60-); Glucose, Blood 82 mg/dL (70-99); Magnesium, Blood 2.3 mg/dL (1.6-2.4); Potassium, Blood 3.6 mmol/L (3.5-5.5); Sodium, Blood 134 mmol/L (136-145)
[2022-06-24 15:08] LABS: A/G RATIO 1.3 (0.7-1.7); ALBUMIN 3.1 g/dL (2.9-4.4); ALPHA-1-GLOBULIN 0.2 g/dL (0.0-0.4); ALPHA-2-GLOBULIN 1.3 g/dL (0.4-1.0); BETA GLOBULIN 0.7 g/dL (0.7-1.3); GAMMA GLOBULIN 0.2 g/dL (0.4-1.8); GLOBULIN, TOTAL 2.4 g/dL (2.2-3.9); M-SPIKE 0.1 g/dL (Not Observed); PROTEIN, TOTAL, SERUM 5.5 g/dL (6.0-8.5)
--- NOTE | 2022-06-24 17:45 | NUR ---
SHIFT SUMMARY PT IS A&O X 4. VSS. R ARM IS IN A STABILIZER, SHE STATES IT'S QUITE PAINFUL WITH MOVEMENT, THEREFORE IS RELUCTANT TO MOVE. WILL ROLL ONTO HER L SIDE FOR BEDPAN USE. HAS HAD 3 MED LOOSE STOOLS TODAY. PICC LINE INTACT & PATENT. AV FISTULA FOR DIALYSIS IS IN R ARM. IS PLEASANT & COOPERATIVE WITH ALL CARE.
--- NOTE | 2022-06-24 22:05 | NUR ---
PCU TELE DAMAGE APPRAISER CALLED WITH REPORT OF SR WITH 1ST DEGREE HB WITH PAC'S AND HR 74 BPM. TT (MURTAZA READ)
--- NOTE | 2022-06-25 03:23 | NUR ---
SHIFT SUMMARY NOC PT A/OX4. VSS. PT STILL FATIGUED FROM DIALYSIS FROM 06/23/22. PT TOOK ALL RX EXCEPT FOR ALUMINUM HYDROXIDE AGAIN. PT DID NOT VOID OR HAVE BM. PT SIANH HAS PICC IN JI THAT FLUSHES BUT DOES NOT DRAW. ALSO HAS AV FISTULA IN RIGHT ARM FOR DIALYSIS. PT HAS DIALYSIS SCHEDULED FOR 06/25/22. PT STILL ON TELE WITH SR WITH 1ST DHB/PAC'S HR 74. PT IS CURRENTLY RESTING WITH BED RAILS UP, BED IN LOWEST POSITION, AND CALL LIGHT WITH REACH.
[2022-06-25 04:45] LABS: Hematocrit 30.8 % (33.0-51.0); Hemoglobin 10.2 g/dL (11.5-16.0)
[2022-06-25 05:26] LABS: Albumin, Blood 3.6 g/dL (3.4-5.0); Anion Gap 15 mmol/L (6-16); Blood Urea Nitrogen 62 mg/dL (8-24); Bun/Creatinine Ratio 8.3 (12.0-20.0); CO2, Blood 27 mmol/L (21-32); Chloride, Blood 93 mmol/L (98-108); Creatinine, Blood 7.45 mg/dL (0.40-1.00); Glomerular Filtration Rate 5 (60-); Glucose, Blood 96 mg/dL (70-99); Magnesium, Blood 2.4 mg/dL (1.6-2.4); Phosphorus, Blood 7.6 mg/dL (2.5-4.9); Potassium, Blood 3.8 mmol/L (3.5-5.5); Sodium, Blood 135 mmol/L (136-145)
[2022-06-25] MEDS ORDERED: ALUMINUM H320 MG/5 M PO (12:07)
[2022-06-25] MEDS ORDERED: B-COMPLEX WITH1 EACH PO (12:07)
[2022-06-25] MEDS ORDERED: PANT20 PO (12:08)
[2022-06-25] MEDS ORDERED: DIGOX125 MC1 PO (12:08)
--- NOTE | 2022-06-25 18:18 | NUR ---
SHIFT SUMMARY PT A/O X4 AND HAD DIALYSIS TODAY. PT EXPERIENCES EXTREME FATIGUE FOLLOWING DIALYSIS. PT WAS TO DC HOME WITH HOME HEALTH TODAY, BUT FELT THAT SHE WOULD RATHER GO TO SNF THAN HOME. UNFORTUNATELY, SNF IS NOT AN OPTION FOR THE PT AT THIS TIME DUE TO NOT BEING ABLE TO RECEIVE HER CHEMO WHILE AT SNF. PT LEFT VOICEMAIL TO REPEAL DC DECISION. ORTHO CONSULTED PT TODAY DUE TO R HUMERUS FX. DR. ORTIZ DEEMED PT SAFE FOR DC FROM AN ORTHO STANDPOINT. PT'S CURRENT BRACE IS APPROPRIATE BUT NEEDS A NEW STRAP, WHICH CAN BE ORDERED FROM [facility]. PT STAYING TONIGHT INSTEAD OF DISCHARGING. VSS.
[2022-06-26 06:05] LABS: Hematocrit 32.4 % (33.0-51.0); Hemoglobin 10.5 g/dL (11.5-16.0)
[2022-06-26 06:25] LABS: Albumin, Blood 3.6 g/dL (3.4-5.0); Anion Gap 11 mmol/L (6-16); Blood Urea Nitrogen 42 mg/dL (8-24); Bun/Creatinine Ratio 7.7 (12.0-20.0); CO2, Blood 29 mmol/L (21-32); Calcium, Blood 9.2 mg/dL (8.5-10.1); Chloride, Blood 98 mmol/L (98-108); Creatinine, Blood 5.42 mg/dL (0.40-1.00); Glomerular Filtration Rate 8 (60-); Glucose, Blood 96 mg/dL (70-99); Magnesium, Blood 2.4 mg/dL (1.6-2.4); Phosphorus, Blood 5.8 mg/dL (2.5-4.9); Potassium, Blood 4.1 mmol/L (3.5-5.5); Sodium, Blood 138 mmol/L (136-145)
--- NOTE | 2022-06-26 08:35 | NUR ---
CAMI SLEPT WELL. WAS RUNNING HOT AND COLD ALL NIGHT. REMOVING ALL OF HER COVERS, THEN PULLING THEM ALL BACK UP ALL NIGHT. STILL VERY QUIET AND TO HERSELF. NO COMPLAINTS OF PAIN OR DISCOMFORT OVERNIGHT. HOPING FOR DISCHARGE SOON WITH APPROPRIATE CARE AVAILABLE TO HER AND ALLOW HER TO CONTINUE HER CHEMO
--- NOTE | 2022-06-26 14:31 | NUR ---
PT DISCHARGED 1415 WITH INSTRUCTIONS. WHEELCHAIR ESCORT OUT TO PRIVATE CAR. BELONGINGS SENT WITH PT.
== END 2022-06-26 14:10 | disposition home health service (06) | DRG 871 ==
LOC: ER 11:36 → ICUW 15:38 → MEDS 15:38 → ICUW 06-11 11:48 → MEDS 06-13 16:47 → PCU 06-15 15:47 → MEDS 06-22 12:47
PROVIDERS: Emergency Medicine; Family Medicine; Internal Medicine Hematology & Oncology; Internal Medicine Nephrology; Nurse Practitioner Acute Care; ADMIT Internal Medicine
PROC: 3E03329 Introduction of Other Anti-infective into Peripheral Vein, Percutaneous Approach (ICD-10-PCS; 2022-06-10)
PROC: 05H333Z Insertion of Infusion Device into Right Innominate Vein, Percutaneous Approach (ICD-10-PCS; principal; 2022-06-11)
PROC: 5A1D70Z Performance of Urinary Filtration, Intermittent, Less than 6 Hours Per Day (ICD-10-PCS; 2022-06-11)
PROC: 30233N1 Transfusion of Nonautologous Red Blood Cells into Peripheral Vein, Percutaneous Approach (ICD-10-PCS; 2022-06-12)
DX: A41.89 Other specified sepsis (principal); D61.810 Antineoplastic chemotherapy induced pancytopenia; J10.00 Influenza due to other identified influenza virus with unspecified type of pneumonia; N18.6 End stage renal disease; J96.01 Acute respiratory failure with hypoxia; C90.00 Multiple myeloma not having achieved remission; M84.422A Pathological fracture, left humerus, initial encounter for fracture; I12.0 Hypertensive chronic kidney disease with stage 5 chronic kidney disease or end stage renal disease; N25.81 Secondary hyperparathyroidism of renal origin; E87.20 Acidosis, unspecified; E87.1 Hypo-osmolality and hyponatremia; E88.09 Other disorders of plasma-protein metabolism, not elsewhere classified; Z51.5 Encounter for palliative care; E83.39 Other disorders of phosphorus metabolism; I48.91 Unspecified atrial fibrillation; T45.1X5A Adverse effect of antineoplastic and immunosuppressive drugs, initial encounter; D63.1 Anemia in chronic kidney disease; E78.5 Hyperlipidemia, unspecified; J30.9 Allergic rhinitis, unspecified; Z20.822 Contact with and (suspected) exposure to COVID-19; Z98.890 Other specified postprocedural states; Z88.0 Allergy status to penicillin; Z92.21 Personal history of antineoplastic chemotherapy; Z88.5 Allergy status to narcotic agent; Z88.8 Allergy status to other drugs, medicaments and biological substances; Z91.041 Radiographic dye allergy status; Z79.899 Other long term (current) drug therapy; Z79.2 Long term (current) use of antibiotics; Z85.3 Personal history of malignant neoplasm of breast; Z79.01 Long term (current) use of anticoagulants; Z99.2 Dependence on renal dialysis; Z95.828 Presence of other vascular implants and grafts
CPT/HCPCS: 0241U; 36415; 36430; 36569; 71045; 73060; 80053; 80069; 81001; 82272; 82607; 82728; 82746; 82784; 83521; 83540; 83550; 83605; 83735; 83880; 84100; 84145; 84155; 84165; 85014; 85018; 85025; 85520; 85610; 85730; 86334; 86850; 86900; 86901; 86902; 86922; 87040; 87086; 87340; 93005; 93010; 93306; 94640; 94664; 94760; 94762; 96365; 96375; 97110; 97112; 97116; 97161; 97166; 97530; 97535; 99285-25; A9270; C1751; J0456; J0696; J0881; J1644; J2930; J7030; J7050; P9016; P9047; Q5110

== ENCOUNTER 2022-07-19 22:14 | Emergency (ER) | payer MEDICARE, BC ==
[~2022-07-19] VITALS: Ht 157.5 cm; Wt 52.6 kg
[~2022-07-19 22:14] MED LIST changes: +ALUMINUM H320 MG/5 M PO; +B-COMPLEX WITH1 EACH PO; +DIGOX125 MC1 PO
[2022-07-19 22:45] LABS: BASOPHILS ABSOLUTE AUTO 0.04 K/mm3 (0.00-0.23); BASOPHILS PERCENT AUTO 3 % (0-2); EOSINOPHILS ABSOLUTE AUTO 0.06 K/mm3 (0.00-0.68); EOSINOPHILS PERCENT AUTO 4 % (0-6); Hematocrit 23.3 % (33.0-51.0); Hemoglobin 7.4 g/dL (11.5-16.0); IMMATURE GRAN ABSOLUTE AUTO 0.02 K/mm3 (0.00-0.10); IMMATURE GRAN PERCENT AUTO 1 % (0-1); LYMPHOCYTES ABSOLUTE AUTO 0.21 K/mm3 (0.84-5.20); LYMPHOCYTES PERCENT AUTO 14 % (21-46); MONOCYTES ABSOLUTE AUTO 0.28 K/mm3 (0.16-1.47); MONOCYTES PERCENT AUTO 19 % (4-13); Mean Corpuscular HGB 32.3 pg (26.0-34.0); Mean Corpuscular HGB Conc 31.8 g/dL (31.5-36.5); Mean Corpuscular Volume 102 fL (80-100); Mean Platelet Volume 10.4 fL (9.1-12.4); NEUTROPHILS ABSOLUTE AUTO 0.85 K/mm3 (1.96-9.15); NEUTROPHILS PERCENT AUTO 58 % (41-73); Platelet Count 141 K/mm3 (150-400); RDW Coefficient Variation 18.7 % (11.7-14.2); Red Blood Cell Count 2.29 M/mm3 (3.80-5.20); White Blood Cell Count 1.46 K/mm3 (4.00-11.30)
[2022-07-19 23:15] LABS: Alanine Aminotransfer (ALT/SGP 10 U/L (12-78); Albumin, Blood 2.6 g/dL (3.4-5.0); Albumin/Globulin Ratio 0.7 (0.8-1.8); Alk Phos 72 U/L (50-136); Anion Gap 19 mmol/L (6-16); Aspartate Aminotrans (AST/SGOT <3 U/L (12-37); Bilirubin, Total 0.6 mg/dL (0.1-1.0); Blood Urea Nitrogen 123 mg/dL (8-24); Bun/Creatinine Ratio 7.7 (12.0-20.0); CO2, Blood 20 mmol/L (21-32); Calcium, Blood 10.7 mg/dL (8.5-10.1); Chloride, Blood 103 mmol/L (98-108); Globulin, Blood 3.6 g/dL (2.2-4.0); Glomerular Filtration Rate 2 (60-); Glucose, Blood 143 mg/dL (70-99); Potassium, Blood 5.3 mmol/L (3.5-5.5); Sodium, Blood 142 mmol/L (136-145); Total Protein, Blood 6.2 g/dL (6.4-8.2)
[2022-07-20 01:01] LABS: Influenza A, PCR NEGATIVE (NEGATIVE); Influenza B, PCR NEGATIVE (NEGATIVE); Resp Syncytial Virus, PCR NEGATIVE (NEGATIVE); SARS-Cov-2 (COVID-19) PCR, MMC NEGATIVE (NEGATIVE)
== END 2022-07-20 05:21 | disposition home or self-care (01) ==
LOC: ER 22:14
PROVIDERS: Emergency Medicine
DX: E86.0 Dehydration (principal); I12.9 Hypertensive chronic kidney disease with stage 1 through stage 4 chronic kidney disease, or unspecified chronic kidney disease; N18.4 Chronic kidney disease, stage 4 (severe); Z99.2 Dependence on renal dialysis; Z91.041 Radiographic dye allergy status; Z88.0 Allergy status to penicillin; Z88.5 Allergy status to narcotic agent; Z88.6 Allergy status to analgesic agent; Z79.899 Other long term (current) drug therapy
CPT/HCPCS: 0241U; 71045; 80053; 85025; 93005; 93010; J7030